=== PATIENT | female | born 1950 | race Caucasian/White ===

== ENCOUNTER 2017-01-24 05:12 | Inpatient (IN) | payer OTHER ==
[2016-12-12 14:00] VITALS: BMI 32.0
--- NOTE | 2016-12-12 14:37 | PAT Medication Instructions ---
Service Date Dec 12, 2016. Current Home Medication List Acetaminophen (Tylenol), 650 MG PO PRN Ascorbic Acid (Vitamin C), 500 MG PO QAM Atorvastatin (Lipitor Unknown Dose), 1 TAB PO QPM Biotin (Biotin), 10,000 MCG PO QAM Fish Oil ([place]-3), 1 CAP PO QAM Glyburide (Micronase), 5 MG PO QAM Laxative (Laxative), 5 MG PO HS Losartan Potassium (Cozaar), 100 MG PO HS Metformin HCL (Glucophage *), 1,000 MG PO QPM Metformin Hcl (Glucophage), 500 MG PO QAM Metoprolol Succ (Toprol Xl) (Toprol-Xl), 50 MG PO HS Multivitamin (Multivitamin), 1 TAB PO QAM Omeprazole (Prilosec), 20 MG PO QAM Pravastatin (Pravachol ), 40 MG PO QPM [Iron], 130 MG PO QAM [Tranjenta], 5 MG PO QAM Medication Instructions For Your Scheduled Surgery - Hold the following medications 2 weeks prior to surgery: Biotin (Biotin), 10,000 MCG PO QAM Fish Oil ([place]-3), 1 CAP PO QAM - Hold the following medications 48 hours prior to surgery: Metformin HCL (Glucophage *) - Hold the following medications evening prior to surgery: Losartan Potassium (Cozaar), 100 MG PO HS - Hold the following medications the morning of surgery: Iron 130 MG PO QAM Multivitamin (Multivitamin), 1 TAB PO QAM Glyburide (Micronase), 5 MG PO QAM Ascorbic Acid (Vitamin C), 500 MG PO QAM Tradjenta 5 MG PO QAM - Take the following medications the morning of surgery with a sip of water: Omeprazole (Prilosec), 20 MG PO QAM Acetaminophen (Tylenol), 650 MG PO PRN - Take the following medications as scheduled the night before surgery: Pravastatin (Pravachol ), 40 MG PO QPM Metoprolol Succ (Toprol Xl) (Toprol-Xl), 50 MG PO HS Laxative (Laxative), 5 MG PO HS Acetaminophen (Tylenol), 650 MG PO PRN If you have any questions please call us at [phone] or [phone] ( [place]) or [phone]
[2016-12-12 15:06] LABS: BASO % 0.4 %; BASO ABS # 0.02 K/uL (0-0.2); EOS % 1.3 %; HEMATOCRIT 35.5 % (37-47); IG% 0.2 %; LYMPH % 25.3 %; MEAN CELL VOLUME 97.5 fL (80-100); MEAN CORPUSCULAR HEMOGLOBIN 32.4 pg (25-34); MEAN CORPUSCULAR HGB CONC 33.2 g/dl (32-36); MEAN PLATELET VOLUME 9.6 fL (7.4-10.4); MONO % 6.9 %; NEUT % 65.9 %; PLATELET COUNT 247 K/uL (130-400); RED BLOOD COUNT 3.64 M/uL (4.2-5.4); WHITE BLOOD COUNT 5.53 K/uL (4.8-10.8)
[2016-12-12 15:15] LABS: PROTHROMBIN TIME (PATIENT) 10.5 SECONDS (9.0-12.0)
--- NOTE | 2016-12-12 15:17 | DIAGNOSTIC IMAGING REPORT ---
CHEST PREADMISSION(PA/LAT) CLINICAL HISTORY: Preoperative chest COMPARISON STUDY: No previous studies for comparison. FINDINGS: The cardiac and mediastinal contours are normal. There is no evidence of focal pulmonary consolidation. There is no evidence of failure. No pleural effusions are visualized.[ There are postsurgical changes present within the lumbar spine. A spinal stimulator is visualized. There are postsurgical changes present within the right shoulder. IMPRESSION: No active disease in the chest. Electronically signed by: Miguelangel Aguiar M.D. 12/12/2016 3:15 PM Dictated Date/Time: 12/12/2016 3:13 PM
[2016-12-12 15:26] LABS: BUN/CREATININE RATIO 19.6 (10-20); CREATININE 1.2 mg/dl (0.60-1.20); POTASSIUM 4.5 mmol/L (3.5-5.1)
[2016-12-12 15:30] LABS: URINE APPEARANCE CLEAR (CLEAR); URINE BILIRUBIN NEG (NEG); URINE COLOR YELLOW; URINE NITRITE NEG (NEG); URINE PH 5.5 (4.5-7.5); URINE SPECIFIC GRAVITY 1.018 (1.000-1.030); UROBILINOGEN NEG (NEG); ZZUR CULT IF INDIC CLEAN CATCH YES
[2016-12-12 15:36] LABS: MANUAL MICROSCOPIC REQUIRED? NO; REVIEW REQ? NO
[2016-12-12 16:08] LABS: COMPLETE YES
[2016-12-13 06:08] LABS: ESTIMATED AVERAGE GLUCOSE 177 mg/dl; HA1C FLAG Normal (Normal)
--- NOTE | 2017-01-23 16:36 | HISTORY & PHYSICAL EXAMINATION ---
DATE OF ADMISSION: 01/24/2017 ADMISSION HISTORY AND PHYSICAL CHIEF COMPLAINT: Chronic left shoulder pain. HISTORY OF PRESENT ILLNESS: This is a 67-year-old female patient of Dr. José'jomar complaining of chronic left shoulder pain and decreased strength, long-standing, now progressively getting worse. The patient has failed conservative treatment and wishes to proceed with a left reversed total shoulder arthroplasty. PAST MEDICAL HISTORY: Hypertension, diabetes mellitus, anemia, osteoarthritis, spine problems, acid reflux, and obesity. SOCIAL HISTORY: 1/4 pack smoker per week. No alcohol. FAMILY HISTORY: Noncontributory. REVIEW OF SYSTEMS: The patient complains of chronic left shoulder pain and decreased strength. Otherwise, denies any shortness of breath, chest pain, nausea, vomiting or any joint complaints. PAST SURGICAL HISTORY: Hysterectomy, bilateral knee replacements, lower back surgery, carpal tunnel surgery and rotator cuff surgery on the right. ALLERGIES: No known drug allergies. MEDICATIONS: Tradjenta 5 mg in the morning, glyburide 5 mg in the morning, vitamin C 500 mg in the morning, multivitamin in the morning, Pearl-3 1200 mg in the morning, iron in the morning and biotin in the morning. In the evenin. Metformin 2/500 mg daily. 2. Pravastatin 40 mg daily at bedtime. 3. Losartan 100 mg daily. 4. Metoprolol 50 mg daily, and laxative 5 mg as needed. PHYSICAL EXAMINATION: GENERAL: Well-developed, well-nourished 67-year-old female in no acute distress. She is alert and oriented x3 and pleasant. HEENT: Normocephalic, atraumatic. Extraocular motions are intact. Pupils are equal and reactive to light. HEART: Regular rate and rhythm, no murmurs appreciated. LUNGS: Clear. ABDOMEN: Soft, nontender, bowel sounds are present. EXTREMITIES: Left shoulder reveals pain with passive range of motion. She has crepitation with passive range of motion. She has 3/5 strength globally. NEUROLOGIC: Neurovascularly, she is intact in her left upper extremity. DIAGNOSES: Left shoulder osteoarthritis with insufficient rotator cuff. She has a history of hypertension, diabetes mellitus, anemia, osteoarthritis, acid reflux, and obesity. PLAN: The patient was advised of her diagnosis. Indications, risks, benefits, pros of course have all been reviewed. The patient wishes to proceed with a left reversed total shoulder arthroplasty. Necessary consent forms, preoperative testing and clearances will be obtained. [facility]
--- NOTE | 2017-01-23 16:44 | HISTORY & PHYSICAL EXAMINATION ---
DATE OF ADMISSION: 01/24/2017 CHIEF COMPLAINT: Chronic left shoulder pain. HISTORY OF PRESENT ILLNESS: This is a 67-year-old female patient of Dr. José'jomar complaining of chronic left shoulder pain, longstanding, now progressively getting worse. The patient has failed conservative treatment and has been diagnosed with end-stage osteoarthritis with insufficient rotator cuff. PAST MEDICAL HISTORY: Hypertension, diabetes mellitus, anemia, osteoarthritis, spine problems, acid reflux, obesity. SOCIAL HISTORY: One-quarter pack per day smoker, nondrinker. SURGICAL HISTORY: Hysterectomy, carpal tunnel, bilateral knee replacements, rotator cuff surgery on the right and back surgery. FAMILY HISTORY: Noncontributory. REVIEW OF SYSTEMS: The patient complains of chronic left shoulder pain and decreased strength, otherwise denies any chest pain, nausea, vomiting or any other joint complaints. MEDICATIONS: Glyburide 5 mg daily, metformin 500 mg daily, vitamin C 500 mg daily, multivitamin daily, omega 3 daily, biotin daily, that was all in the morning, in the evening again Metformin 500 mg b.i.d., pravastatin 40 mg daily, nighttime lovastatin 100 mg daily, metoprolol 50 mg daily and laxatives 5 mg as needed. ALLERGIES: No known drug allergies. PHYSICAL EXAMINATION: GENERAL: Well-developed, well-nourished 86-year-old female patient of Dr. José'jomar complaining of chronic left shoulder pain and decreased strength with a history of hypertension. EXTREMITIES: Left shoulder reveals 3/5 strength. She had pain and crepitation with passive range of motion. Otherwise, denies any shortness of breath. DICTATION ENDED HERE!
[~2017-01-24] VITALS: Ht 160 cm; Wt 82.6 kg
[2017-01-24] VITALS (8 sets, daily range): BP systolic 103–155; BP diastolic 59–82; PULSE 63–77; TEMP 36.3–36.8; O2SAT 96–100; Ht 160 cm; Wt 82.6 kg
[~2017-01-24 05:12] MED LIST: ACET-1311 PO; ASCO1CAP3 PO; BIOT1CAP3 PO; GLC/500 PO; GLC500 PO; GLYB5TAB8 PO; IRON PO; LOSA1TAB38 PO; LXT PO; METO50TA7 PO; MULT-506 PO; OMEG10007 PO; PRAV20TA PO; PRLSR20 PO; Tradjenta PO
[2017-01-24] MEDS ORDERED: LACTATED RINGER'S 1000ML IV SCH (06:00)
[2017-01-24] MEDS ORDERED: GABAPENTIN 300 MG CAP PO SCH (06:00)
[2017-01-24] MEDS ORDERED: FAMOTIDINE 20 MG TAB PO SCH (06:00)
[2017-01-24] MEDS ORDERED: ACETAMINOPHEN 500 MG TAB PO SCH (06:00)
[2017-01-24] MEDS ORDERED: METOCLOPRAMIDE HCL 10 MG TAB PO SCH (06:00)
[2017-01-24] MEDS ORDERED: LACTATED RINGER'S 1000ML 1,000 ML IV SCH (06:00)
[2017-01-24] MEDS ORDERED: CEFAZOLIN 2000 MG/60 ML D5W 60 ML IV SCH (06:00)
[2017-01-24] MEDS ORDERED: CeleBREX 200 MG CAP PO SCH (06:00)
[2017-01-24] MEDS ORDERED: ROPIVACAINE 0.5% 5 MG/ML 30 ML VIAL ONE (06:17)
[2017-01-24] MEDS ORDERED: FENTANYL CITRATE INJ 50 MCG/1 ML 2 ML VIAL ONE (06:52)
[2017-01-24] MEDS ORDERED: MIDAZOLAM HCL 1 MG/ML 2ML VIAL ONE (06:52)
[2017-01-24] MEDS ORDERED: BACITRACIN 50000 UNIT VIAL ONE (06:59)
--- NOTE | 2017-01-24 07:13 | History & Physical Bridge Note ---
H&P Re-Evaluation Bridge Note: I have examined the patient, reviewed the History & Physical and in the interval since the performance of the History & Physical I have noted the following changes of clinical significance: No changes noted
[2017-01-24] MEDS ORDERED: ONDANSETRON INJ 2 MG/ML 2 ML VIAL IV PRN (08:15)
[2017-01-24] MEDS ORDERED: HYDROmorphone INJ 2 MG/ML SYR/VIAL IV PRN (08:15)
[2017-01-24] MEDS ORDERED: PHENYLEPHRINE 100MCG/ML 5ML SYR IV PRN (08:15)
[2017-01-24] MEDS ORDERED: ATROPINE SULFATE 0.1 MG/ML 5ML SYR IV PRN (08:15)
[2017-01-24] MEDS ORDERED: EpHEDrine SULFATE INJ 50 MG/ML AMP IV PRN (08:15)
--- NOTE | 2017-01-24 09:59 | [facility] Operative Report ---
Operative Report Operative Date January 24, 2017. Pre-Operative Diagnosis Left shoulder osteoarthritis with insufficient rotator cuff Post-Operative Diagnosis same Procedure(s) Performed left reversed total shoulder replacement Surgeon Dr. José Program Coordinator Surgeon(s) CAITIE Marin Estimated Blood Loss 50cc Findings severe djd posterior superior glenoid erosion,chronic tear rotator cuff supraspinatus and infraspinatus Specimens A) Left shoulder- bone & tissue Drains 2 hemovac Anesthesia general regional Complication(s) None Disposition Recovery Room / PACU Indications severe rotator cuff arthropathy I attest to the content of the Intraoperative Record and any orders documented therein. Any exceptions are noted below.
[2017-01-24] MEDS ORDERED: PROPOFOL IV EMULSION 10 MG/ML 20 ML VIAL IV ONE (10:03)
[2017-01-24] MEDS ORDERED: ROCURONIUM BROMIDE 10 MG/ML 5 ML VIAL ONE (10:03)
[2017-01-24] MEDS ORDERED: DEXAMETHASONE SOD INJ 4 MG/ML VIAL ONE (10:03)
[2017-01-24] MEDS ORDERED: ONDANSETRON INJ 2 MG/ML 2 ML VIAL ONE (10:03)
[2017-01-24] MEDS ORDERED: LIDOCAINE 2% 20 MG/ML 5ML SYR ONE (10:03)
[2017-01-24] MEDS ORDERED: LARYING-O-JET KIT (LTA) EXT ONE ×2 (10:03)
[2017-01-24] MEDS ORDERED: MAGNESIUM HYDROXIDE SUSP 30 ML UDC PO PRN (10:15)
[2017-01-24] MEDS ORDERED: ZOLPIDEM TARTRATE 5 MG TAB PO PRN (10:15)
[2017-01-24] MEDS ORDERED: NALOXONE HCL 0.4 MG/1 ML VIAL/CARP IV PRN (10:15)
[2017-01-24] MEDS ORDERED: BISACODYL 10 MG SUPP PR PRN (10:15)
[2017-01-24] MEDS ORDERED: SOD PHOSPHATE/SOD BIPHOSPHATE ENEMA 132 ML BTL PR PRN (10:15)
[2017-01-24] MEDS ORDERED: MoRPHine SULFATE 2 MG/ML CARP IV PRN (10:15)
[2017-01-24] MEDS ORDERED: HYDROmorphone INJ 1 MG/ML SYR ONE (10:28)
--- NOTE | 2017-01-24 11:06 | DIAGNOSTIC IMAGING REPORT ---
LEFT SHOULDER MIN 2 VIEWS ROUTINE CLINICAL HISTORY: Post shoulder surgery shoulder arthroplasty COMPARISON: None. DISCUSSION: Evidence for a total left shoulder arthroplasty. Alignment is anatomic. Surgical drains are in position. Expected soft tissue postoperative change. IMPRESSION: Anatomic alignment status post total left shoulder arthroplasty. Electronically signed by: Maxi Magana M.D. 01/24/2017 11:04 AM Dictated Date/Time: 01/24/2017 11:04 AM
--- NOTE | 2017-01-24 11:26 | Anesthesiology Progress Note ---
Anesthesia Post Op Note Date & Time January 24, 2017 at 11:26 Vital Signs Pain Intensity: 1 Vital Signs Past 12 Hours Date Time Temp Pulse Resp B/P Pulse Ox O2 Delivery O2 Flow Rate FiO2 01/24/17 10:57 36.4 75 16 154/83 98 Nasal Cannula 3 01/24/17 10:55 155/84 01/24/17 10:53 70 15 95 01/24/17 10:53 70 15 01/24/17 10:50 157/82 01/24/17 10:48 73 14 01/24/17 10:48 72 14 100 01/24/17 10:45 150/80 01/24/17 10:43 69 14 01/24/17 10:43 68 14 99 01/24/17 10:40 150/78 01/24/17 10:38 70 15 01/24/17 10:38 70 15 99 01/24/17 10:35 151/76 01/24/17 10:33 70 14 100 01/24/17 10:33 70 14 01/24/17 10:32 69 16 01/24/17 10:32 69 16 100 01/24/17 10:30 148/73 01/24/17 10:27 73 16 100 01/24/17 10:27 73 16 01/24/17 10:25 157/78 01/24/17 10:22 71 9 01/24/17 10:22 71 9 100 01/24/17 10:20 148/80 01/24/17 10:17 71 12 100 01/24/17 10:17 71 12 01/24/17 10:15 146/75 01/24/17 10:12 66 16 152/83 100 01/24/17 10:12 67 16 01/24/17 10:12 36 65 16 152/83 100 Mask 10 01/24/17 06:11 36.5 63 18 129/75 96 Room Air Notes Mental Status: alert / awake / arousable, participated in evaluation Pt Amnestic to Procedure: Yes Nausea / Vomiting: adequately controlled Pain: adequately controlled Airway Patency, RR, SpO2: stable & adequate BP & HR: stable & adequate Hydration State: stable & adequate Anesthetic Complications: no major complications apparent
[2017-01-24] MEDS ORDERED: GLUCOSE 40% GEL 15 GM TUBE PO PRN (12:00)
[2017-01-24] MEDS ORDERED: INSULIN ASPART 100 UNITS/ML 3 ML PEN SC SCH (12:00)
[2017-01-24] MEDS ORDERED: GLUCOSE 10 TABS/TUBE PO PRN (12:00)
[2017-01-24] MEDS ORDERED: GLUCAGON FOR INJ 1 MG VIAL SQ PRN (12:00)
[2017-01-24] MEDS ORDERED: DEXTROSE 50% 50 ML SYR IV PRN (12:00)
[2017-01-24] MEDS ORDERED: MoRPHine SULFATE 4 MG/ML 1 ML CARP\\VIAL IV PRN (12:15)
--- NOTE | 2017-01-24 12:30 | OPERATIVE REPORT ---
DATE OF OPERATION: 01/24/2017 INDICATION FOR PROCEDURE: The patient is a 67-year-old female with progressive chronic pain in left shoulder. She has a chronic rotator cuff tear. She has severe rotator cuff arthropathy, [id number] in the glenohumeral joint with proximal migration of the humerus. PREOPERATIVE DIAGNOSES: Severe endstage rotator cuff arthropathy, chronic rotator cuff tear, left shoulder. POSTOPERATIVE DIAGNOSES: Same with chronically ruptured biceps tendon, scarred in biceps groove, tears of supraspinatus and infraspinatus with intact teres minor, severe degenerative joint disease glenohumeral joint with posterior superior glenoid bone erosion. PROCEDURE: Left reverse total shoulder replacement. SURGEON: Dr. José. FRAME CHANGER: Maxi Gibson PA-C. ANESTHESIA: Regional block, general. OPERATIVE PROCEDURE: The patient was taken to the operating room, anesthetized with regional block and general anesthetic. She was positioned on the operating room table in a 40-degree beach chair position. A towel was placed in the medial border of the left scapula. She was translated to left side of the bed so that her shoulder could be manipulated off the bed as necessary. Her head was placed on a foam headrest. She had protective eyewear placed. She had a Boothe catheter placed, TEDs and SCDs placed. Left shoulder exam demonstrated she had 120 degrees of forward elevation, 7 degrees of abduction, and 15 degrees of external rotation, [id number] crepitation. The left shoulder was sterilely prepped and draped with ChloraPrep. Anterior deltopectoral approach was performed. Skin was incised sharply in a longitudinal fashion. Subcutaneous fat which was moderately deep was divided down to the fascia. Subcutaneous bleeders were cauterized. She had multiple veins that were cauterized. Dissection was taken down to the fascia. She did not have a well-developed cephalic vein. She has had some small veins in that area, had some crossing veins. These were cauterized. The deltoid was retracted laterally. The pectoralis was retracted medially. The falciform ligament and upper centimeter of the pec was incised for inferior exposure. The biceps tendon was then tenodesed to the pectoralis tendon using slzeru-[id number] #2 FiberWire sutures. Proximal biceps was divided proximal to the tenodesis site and then we dissected this up and there was actually previously ruptured and scarred in bicipital groove. The circumflex vessels were identified, tied off with silk ties, and divided laterally. There was a large bursal sac with scarred bursa tissue that was surrounding the rotator cuff and overlying the subscapularis. This was dissected off the subscapularis and then tacked and this revealed a large rotator cuff tear, the supraspinatus and infraspinatus which were completely torn, there were large greater tuberosity osteophytes, and there was an intact teres minor. The other rotator cuff tendons were retracted medially significantly. This bursa was resected completely. Then, the inferior muscle fibers of the subscapularis were dissected down to the inferior capsule and I left a cup of muscle fibers to protect the axillary nerve inferiorly. I dissected off the inferior capsule and a Kitner elevator was used to reflect these fibers off the inferior capsule and then a blunt Hohmann retractor was placed to protect the axillary nerve which was identified with a tug test. The subscapularis was then taken down starting in the bicipital groove and subperiosteal dissecting the capsule and intact subscap tendon off the lesser tuberosity and off the neck of the humerus and the inferior neck of the humerus. A #1 Vicryl traction suture was placed into the subscapularis tendon to control the tendon. The glenohumeral joint was inspected. She had significant glenoid erosion, more posterior superior, and she was completely down to bone on the humeral head. She did not have any significant humeral head osteophytes inferiorly, but more laterally and superiorly she had osteophytes. The capsule was released under direct visualization down to the anterior glenoid, released off the anterior glenoid, and the rotator interval tissue was released down to the glenoid, so we had a 360-degree release of the subscapularis. Bankart retractor was placed anteriorly. The labral remnants were resected circumferentially. An anteroinferior and posteroinferior capsular release was performed with electrocautery and a Crisostomo elevator on bone with the axillary nerve protected with the inferior retractor. The remnants of the rotator cuff were resected off the supraspinatus and infraspinatus. The humerus was then exposed with extension and external rotation. The Tornier Aequalis reversed II glenoid was used and the Ascend Flex shoulder system was used for the humeral stem. Both bone ingrowth devices. The guide for the neck cut was placed, the neck cut was made in 20 degrees of retroversion. Then, the humerus was retracted posterior to the glenoid using blunt Hohmann and sharp Hohmann retractors. A Bankart retractor was placed anteriorly with the glenoid fully exposed. A central drill hole was made into the glenoid. We positioned the glenoid reamer and drill hole so that we could put 10-degree inferior tilt and correct some of the posterior wear into some slight more anteversion into a better anatomic position. The 25 mm baseplate was chosen. Then, after the reamer was completed, the central hole was widened and the 25 mm baseplate was impacted into position with a tight pressfit. We used anterior and posterior 18 mm compression screws and 23 and 20 mm superior and inferior locking screws for further fixation. There was excellent fixation of the glenoid baseplate. A fan reamer was used. Then, the 36 glenosphere was impacted into position after the baseplate was irrigated copiously and dried. The glenosphere after impacting it solidly and checking it, then we went ahead and tightened the screw until it was fully tightened and the baseplate was secure. Then, attention was taken to the humeral preparation. Humerus was exposed with extension and external rotation. A central awl was used. Broaches were used up to a size 4 which was appropriate fit. Box osteotome was used to open the canal. Then, we broached up to a size 4. Then did a trial reduction with a high offset +0 tray with a 6 mm implant trial. This gave good stability, no shuck, good range of motion. The trial was removed. Three drill holes were made lateral to the lesser tuberosity and into the hard bone in the bicipital groove area. #5 FiberWire sutures were placed transosseously around the lesser tuberosity. The canal was irrigated copiously with antibiotic solution and bacitracin. The final implant was assembled which was the long stem size 4B stem assembled to the high offset reversed tray, assembled to the +6 mm polyethylene insert. After that component was solidly assembled, it was impacted into the humeral shaft with a tight pressfit. This was reduced to the glenoid, stability was assessed, and there was excellent stability, no shuck. After copiously irrigating with antibiotic solution and cameron, the subscapularis was then repaired with the #5 FiberWire sutures using Kan-Zuhair suture technique and then reassessed range of motion which was 35 degrees of external rotation and 90 degrees of abduction and 130 degrees of forward elevation without any tension on the repair and there was no shuck and good stability. The wound was irrigated copiously. The pectoralis tendon was repaired with interrupted gjides-cz-uluor #2 FiberWire sutures. Two drains were placed. The deltopectoral interval was closed over the drains with hownom-pa-zbvve #1 Vicryl. Subcutaneous tissues were closed with interrupted 2-0 Vicryl, skin closed with ace, sterile dressings applied. The patient had about 50 mL of blood loss, tolerated the procedure well. Maxi Gibson PA-C, was my faculty research assistant, functioned as faculty research assistant for the entire procedure. He assisted in patient positioning, prepping, draping, arm positioning, instrument management, suture management as needed during the procedure, performed soft tissue retraction as necessary, and he did perform the final subcutaneous skin closure and will participate in postop care of the patient. I attest to the content of the Intraoperative Record and any orders documented therein. Any exceptio ns are noted below.
[2017-01-24] MEDS: POTASSIUM CHLORIDE INJ 10 MEQ in SODIUM CHLORIDE 0.9% 1000ML 1,000 ML IV SCH ×2 (13:07→21:45)
[2017-01-24] MEDS: ACETAMINOPHEN 500 MG TAB PO SCH ×2 (13:08→21:35)
--- NOTE | 2017-01-24 13:29 | Progress Note ---
Subjective Date of Service: January 24, 2017. Subjective Pt evaluation today including: conversation w/ patient, physical exam, chart review, lab review, review of inpatient medication list asked to see for "medical management" on review main medical problems appear to be DM, HTN, hyperlipid, GERD. seen post op - somewhat groggy but doing OK. notes no pain yet. did have some nausea earlier but going away. no acute complaints A1c 7.8, notes that in addition to listed meds she takes toujeo but doesn't remember how much notes that BP usually runs good. although does not give specific numbers Review of Systems ros otherwise negative except for as above Objective Vital Signs Date Time Temp Pulse Resp B/P Pulse Ox O2 Delivery O2 Flow Rate FiO2 01/24/17 12:46 77 20 143/76 99 Nasal Cannula 2.0 01/24/17 12:08 36.3 72 16 155/77 97 Nasal Cannula 2.0 01/24/17 11:40 36.6 77 18 152/75 97 Nasal Cannula 2.0 01/24/17 11:40 Nasal Cannula 2.0 01/24/17 11:21 71 11 96 01/24/17 11:21 71 11 01/24/17 11:20 157/78 01/24/17 11:16 70 13 01/24/17 11:16 69 13 97 01/24/17 11:15 145/79 01/24/17 11:11 69 12 96 01/24/17 11:11 68 12 01/24/17 11:10 159/77 01/24/17 11:07 153/81 01/24/17 11:06 73 16 96 01/24/17 11:06 73 16 01/24/17 11:05 165/84 01/24/17 11:01 69 12 96 01/24/17 11:01 70 12 01/24/17 11:00 154/83 01/24/17 10:57 36.4 75 16 154/83 98 Nasal Cannula 3 01/24/17 10:56 70 10 01/24/17 10:56 70 10 95 01/24/17 10:55 155/84 01/24/17 10:53 70 15 95 01/24/17 10:53 70 15 01/24/17 10:50 157/82 01/24/17 10:48 73 14 01/24/17 10:48 72 14 100 01/24/17 10:45 150/80 01/24/17 10:43 69 14 01/24/17 10:43 68 14 99 01/24/17 10:40 150/78 01/24/17 10:38 70 15 01/24/17 10:38 70 15 99 01/24/17 10:35 151/76 01/24/17 10:33 70 14 100 01/24/17 10:33 70 14 01/24/17 10:32 69 16 01/24/17 10:32 69 16 100 01/24/17 10:30 148/73 01/24/17 10:27 73 16 100 01/24/17 10:27 73 16 01/24/17 10:25 157/78 01/24/17 10:22 71 9 01/24/17 10:22 71 9 100 01/24/17 10:20 148/80 01/24/17 10:17 71 12 100 01/24/17 10:17 71 12 01/24/17 10:15 146/75 01/24/17 10:12 66 16 152/83 100 01/24/17 10:12 67 16 01/24/17 10:12 36 65 16 152/83 100 Mask 10 01/24/17 06:11 36.5 63 18 129/75 96 Room Air Physical Exam General Appearance: no apparent distress (fatigued but no distress) Eyes: EOMI ENT: hearing grossly normal Neck: trachea midline Respiratory/Chest: no respiratory distress, no accessory muscle use Extremities: + pertinent finding (L shoulder in a sling, dressed. ) Neurologic/Psychiatric: program supervisor II-XII nml as tested, alert, normal mood/affect Skin: normal color, warm/dry Laboratory Results Last 24 Hours Test 01/24/17 06:02 01/24/17 10:14 01/24/17 12:06 Bedside Glucose 184 mg/dl 192 mg/dl 222 mg/dl Assessment and Plan s/p shoulder surgery - per ortho DVT proph - per ortho given her immediate post op status DM -A1c 7.8, sugars appearing currently a little high as well -with creatinine 1.2 and low risk for volume loss- OK to resume metformin and glyburide. since she's not sure how much insulin she takes (and diet likely to be more carb controlled here than as outpt) will start w supplemental log insulin and titrate to basal bolus if necessary HTN -continue losartan (again low risk for volume loss, so OK to continue) -continue metoprolol -follow vitals Hyperlipid -continue pravachol GERD -continue PPI
[2017-01-24] MEDS: CEFAZOLIN IV 2,000 MG in DEXTROSE 5% 50ML 50 ML IV SCH ×2 (16:02→23:31)
[2017-01-24] MEDS: METFORMIN HCL 500 MG TAB PO SCH (18:20)
[2017-01-24] MEDS: ONDANSETRON INJ 2 MG/ML 2 ML VIAL IV PRN (18:21)
[2017-01-24] MEDS: INSULIN ASPART 100 UNITS/ML 3 ML PEN SC SCH ×2 (18:27→21:37)
[2017-01-24] MEDS: PRAVASTATIN SOD 20 MG TAB PO SCH (21:35)
[2017-01-24] MEDS: DOCUSATE SODIUM 100 MG CAP PO SCH (21:35)
[2017-01-24] MEDS: LOSARTAN POTASSIUM 50 MG TAB PO SCH (21:36)
[2017-01-24] MEDS: METOPROLOL SUCC 50MG EXT REL TAB PO SCH (21:36)
[2017-01-24] MEDS: OXYCODONE HCL 10 MG TABCR (OXYCONTIN) PO SCH (21:38)
[2017-01-25] VITALS (8 sets, daily range): BP systolic 110–134; BP diastolic 68–82; PULSE 59–69; TEMP 36.6–36.9; O2SAT 97–100
[2017-01-25] MEDS: ACETAMINOPHEN 500 MG TAB PO SCH ×4 (05:40→22:58)
[2017-01-25 06:16] LABS: HEMATOCRIT 30.8 % (37-47); MEAN CORPUSCULAR HEMOGLOBIN 31.2 pg (25-34); MEAN CORPUSCULAR HGB CONC 31.5 g/dl (32-36); MEAN PLATELET VOLUME 9.2 fL (7.4-10.4); PLATELET COUNT 217 K/uL (130-400); RED BLOOD COUNT 3.11 M/uL (4.2-5.4); WHITE BLOOD COUNT 7.32 K/uL (4.8-10.8)
[2017-01-25 06:49] LABS: BUN/CREATININE RATIO 30.4 (10-20); CALCIUM 8.3 mg/dl (8.5-10.1); CREATININE 0.79 mg/dl (0.60-1.20); POTASSIUM 4.7 mmol/L (3.5-5.1)
[2017-01-25] MEDS: ONDANSETRON INJ 2 MG/ML 2 ML VIAL IV PRN ×2 (07:34→13:28)
[2017-01-25] MEDS: INSULIN ASPART 100 UNITS/ML 3 ML PEN SC SCH ×4 (08:00→20:46)
--- NOTE | 2017-01-25 08:06 | Orthopedic Progress Note ---
Orthopedic Progress Note Date of Service January 25, 2017. Subjective Post OP Day: 1 Reports: feeling well, pain controlled w PO medications, Denies: SOB, calf pain , chest pain, complaints, light headedness, nausea / vomiting Objective N/V intact, capillary refill less than 2 sec., dressing C/D/I, A&O x3 Sling in tact, fingers mobile. Date Time Temp Pulse Resp B/P Pulse Ox O2 Delivery O2 Flow Rate FiO2 01/25/17 06:56 36.6 59 20 123/80 100 Room Air 01/25/17 03:10 36.7 65 16 128/68 97 Nasal Cannula 2.0 01/24/17 23:40 36.6 72 16 103/59 100 Nasal Cannula 2.0 01/24/17 21:35 121/71 01/24/17 19:30 Nasal Cannula 2.0 01/24/17 16:00 Nasal Cannula 2.0 01/24/17 14:49 36.8 67 18 130/82 99 Nasal Cannula 2.0 01/24/17 13:40 74 18 129/75 96 Nasal Cannula 2.0 01/24/17 12:46 77 20 143/76 99 Nasal Cannula 2.0 01/24/17 12:08 36.3 72 16 155/77 97 Nasal Cannula 2.0 01/24/17 11:40 36.6 77 18 152/75 97 Nasal Cannula 2.0 01/24/17 11:40 Nasal Cannula 2.0 01/24/17 11:21 71 11 96 01/24/17 11:21 71 11 01/24/17 11:20 157/78 01/24/17 11:16 70 13 01/24/17 11:16 69 13 97 01/24/17 11:15 145/79 01/24/17 11:11 69 12 96 01/24/17 11:11 68 12 01/24/17 11:10 159/77 01/24/17 11:07 153/81 01/24/17 11:06 73 16 96 01/24/17 11:06 73 16 01/24/17 11:05 165/84 01/24/17 11:01 69 12 96 01/24/17 11:01 70 12 01/24/17 11:00 154/83 01/24/17 10:57 36.4 75 16 154/83 98 Nasal Cannula 3 01/24/17 10:56 70 10 01/24/17 10:56 70 10 95 01/24/17 10:55 155/84 01/24/17 10:53 70 15 95 01/24/17 10:53 70 15 01/24/17 10:50 157/82 01/24/17 10:48 73 14 01/24/17 10:48 72 14 100 01/24/17 10:45 150/80 01/24/17 10:43 69 14 01/24/17 10:43 68 14 99 01/24/17 10:40 150/78 01/24/17 10:38 70 15 01/24/17 10:38 70 15 99 01/24/17 10:35 151/76 01/24/17 10:33 70 14 100 01/24/17 10:33 70 14 01/24/17 10:32 69 16 01/24/17 10:32 69 16 100 01/24/17 10:30 148/73 01/24/17 10:27 73 16 100 01/24/17 10:27 73 16 01/24/17 10:25 157/78 01/24/17 10:22 71 9 01/24/17 10:22 71 9 100 01/24/17 10:20 148/80 01/24/17 10:17 71 12 100 01/24/17 10:17 71 12 01/24/17 10:15 146/75 01/24/17 10:12 66 16 152/83 100 01/24/17 10:12 67 16 01/24/17 10:12 36 65 16 152/83 100 Mask 10 Laboratory Results 24 Hours: Test 01/25/17 05:30 Hematocrit 30.8 % Hemoglobin 9.7 g/dL Assessment & Plan Assessment: POD #1, Left Reversed TSA, biceps tenodesis Plan: Limited PT as ordered D/C planning- Home Appreciate medicine input. Inhouse Planning Pain Management: Oxycontin, Morphine, PO Tylenol, Oxy IR DVT Prophylaxis: TEDs, SCDs Discharge Planning Discharge Planning: home Pain Management: Oxycontin, PO Tylenol, Oxy IR DVT Prophylaxis: TEDs
--- NOTE | 2017-01-25 08:08 | Discharge Instructions ---
Discharge Instructions Date of Service January 25, 2017. Admission Reason for Admission: Left Shoulder Rotator Cuff Arthropathy Discharge Discharge Diagnosis / Problem: Left Reversed TSA Discharge Goals Goal(s): Improve function Activity Recommendations Activity Limitations: as noted below . Instructions / Follow-Up Instructions / Follow-Up ACTIVITY RECOMMENDATIONS: SELF CARE INSTRUCTIONS AFTER TOTAL SHOULDER ARTHROPLASTY REVERSE A. You may do daily exercises as taught in physical therapy while in hospital. No lifting with the operative arm. B. You are to wear your sling/immobilizer at all times EXCEPT when performing your daily exercises and for hygiene purposes. C. You may perform dry, daily dressing changes. Please keep your incision covered. You may shower 48 hours after surgery. Do not apply soap or any ointment/ lotions directly over incision. Do not soak incision in bath tub/swimming pool. D. You may use ice as needed to operative shoulder. SPECIAL CARE INSTRUCTIONS: VERY IMPORTANT TO READ AND REVIEW A. There are a few signs you need to watch for after you are home. Call [facility] at [phone] if you experience any of the followin. Increased severe shoulder pain. Some pain is expected especially when you exercise. 2. Increased swelling in you shoulder or arm; pain or swelling in either upper extremity. 3. Any fluid drainage from the incision. 4. Shortness of breath or chest pain. B. Please call [facility] at [phone] if you have any questions or concerns about your operation or recovery. C. Call your physician if: 1. Temperature is greater than 101 degrees (F). 2. Pain is not relieved by prescribed pain medications. 3. Increase drainage or redness from incision. 4. Unanswered questions or concerns. FOLLOW UP VISIT: Please call [facility] at [phone] to schedule a follow up appointment with Dr. José or his PA in 12-14 days from your surgery date. Current Hospital Diet Patient's current hospital diet: Diabetes Type 2 Diet Discharge Diet Recommended Diet: Diabetes Type 2 Diet Procedures Procedures Performed: Left Reverse Total Shoulder Arthroplasty Pending Studies Studies pending at discharge: no Laboratory Results Hemoglobin A1c Test 12/12/16 14:40 Range/Units Estimated Average Glucose 177 mg/dl Hemoglobin A1c 7.8 H 4.5-5.6 % Medical Emergencies . Who to Call and When: Medical Emergencies: If at any time you feel your situation is an emergency, please call 911 immediately. . Non-Emergent Contact Non-Emergency issues call your: Primary Care Provider . "Provider Documentation" section prepared by Maxi Gibson. . VTE Core Measure Inpt VTE Proph given/why not?: Alex BLOOD Drug Monitoring Program Search Results: patient reviewed within database, no issues identified
[2017-01-25] MEDS: METFORMIN HCL 500 MG TAB PO SCH ×2 (08:16→17:53)
[2017-01-25] MEDS: DOCUSATE SODIUM 100 MG CAP PO SCH ×2 (08:17→20:39)
[2017-01-25] MEDS: MULTIVITAMIN TAB PO SCH (08:17)
[2017-01-25] MEDS: FERROUS SULFATE 325 MG TAB PO SCH (08:17)
[2017-01-25] MEDS: PANTOprazole SOD 40 MG TAB PO SCH (08:17)
[2017-01-25] MEDS: ASCORBIC ACID 500 MG TAB PO SCH (08:17)
[2017-01-25] MEDS: POTASSIUM CHLORIDE INJ 10 MEQ in SODIUM CHLORIDE 0.9% 1000ML 1,000 ML IV SCH (08:21)
[2017-01-25] MEDS: OXYCODONE HCL 10 MG TABCR (OXYCONTIN) PO SCH (08:21)
[2017-01-25] MEDS ORDERED: NON-FORMULARY MEDICATION (Biotin 10,000 MCG) PO SCH (09:00)
[2017-01-25] MEDS ORDERED: TRADJENTA 5 MG PO SCH (09:00)
[2017-01-25] MEDS: OXYCODONE HCL IR 5 MG TAB (IMMEDIATE RELEASE) PO PRN (09:59)
--- NOTE | 2017-01-25 10:21 | Progress Note ---
Subjective Date of Service: January 25, 2017. Subjective Pt evaluation today including: conversation w/ patient, physical exam, lab review, review of inpatient medication list Pain: left shoulder pain, controlled PO Intake: adequate Voiding: no voiding problems patient feeling well, no chest pain, no dyspnea, just finished ambulating in the halls left shoulder pain controlled, currently going through some exercises with therapy eating well, no nausea, no BM today Review of Systems Musculoskeletal: + joint pain (left shoulder after surgery) All Other Systems: Reviewed and Negative Medications Current Inpatient Medications Medications (Trade) Dose Ordered Sig/[place] Route Start Time Stop Time Status Last Admin Dose Admin Losartan Potassium (coZAAR TAB) 100 mg HS PO 01/24/17 21:00 02/23/17 20:59 01/24/17 21:36 100 MG Metoprolol Succinate (Toprol Xl Tab) 50 mg HS PO 01/24/17 21:00 02/23/17 20:59 01/24/17 21:36 50 MG Pravastatin Sodium (Pravachol Tab) 40 mg QPM PO 01/24/17 21:00 02/23/17 20:59 01/24/17 21:35 40 MG Ascorbic Acid (Vitamin C Tab) 500 mg QAM PO 01/25/17 09:00 02/24/17 08:59 01/25/17 08:17 500 MG Ferrous Sulfate (Feosol Tab) 650 mg DAILY PO 01/25/17 09:00 02/24/17 08:59 01/25/17 08:17 650 MG Diphenhydramine HCl (Benadryl Cap) 25 mg Q8 PRN PO 01/24/17 10:15 02/23/17 10:14 Zolpidem Tartrate (Ambien Tab) 5 mg HSZ PRN PO 01/24/17 10:15 02/23/17 10:14 Ondansetron HCl (Zofran Inj) 4 mg Q6H PRN IV 01/24/17 10:15 02/23/17 10:14 01/25/17 07:34 4 MG Pantoprazole Sodium 40 mg 40 mg QAM PO 01/25/17 09:00 02/24/17 08:59 01/25/17 08:17 40 MG Potassium Chloride/Sodium Chloride (KCl Inj/Nss 1000ml) 1,005 ml @ 100 mls/hr Q10H3M IV 01/24/17 12:30 01/25/17 11:00 01/25/17 08:21 100 MLS/HR Oxycodone HCl (Roxicodone Immediate Rel Tab) `1-2 TABS FOR PAIN `1 TAB... Q4H PRN PO 01/24/17 10:15 02/07/17 10:14 01/25/17 09:59 5 MG Oxycodone HCl (Oxycontin Tab) 10 mg Q12 PO 01/24/17 21:00 02/07/17 20:59 01/25/17 08:21 10 MG Acetaminophen (Tylenol Tab) 1,000 mg Q8 PO 01/24/17 14:00 02/23/17 13:59 01/25/17 05:40 1,000 MG Morphine Sulfate (MoRPHine SULFATE INJ) 2 mg Q2H PRN IV 01/24/17 10:15 02/07/17 10:14 Naloxone HCl (Narcan Inj) 0.1 mg Q2M PRN IV 01/24/17 10:15 02/23/17 10:14 Magnesium Hydroxide (Milk Of Magnesia Susp) 30 ml Q6H PRN PO 01/24/17 10:15 02/23/17 10:14 Bisacodyl (Dulcolax Supp) 10 mg DAILY PRN NE 01/24/17 10:15 02/23/17 10:14 Sodium Biphosphate/ Sodium Phosphate (Fleet Enema) 132 ml DAILY PRN NE 01/24/17 10:15 02/23/17 10:14 Docusate Sodium (coLACE CAP) 100 mg BID PO 01/24/17 21:00 02/23/17 20:59 01/25/17 08:17 100 MG Multivitamins (Multivitamin Tab) 1 tab DAILY PO 01/25/17 09:00 02/24/17 08:59 01/25/17 08:17 1 TAB Glucose (Glucose 40% Gel) 15-30 GRAMS 15 GRAMS... UD PRN PO 01/24/17 12:00 02/23/17 11:59 Glucose (Glucose Chew Tab) 4-8 Tablets 4 Tabl... UD PRN PO 01/24/17 12:00 02/23/17 11:59 Dextrose (Dextrose 50% 50ML Syringe) 25-50ML OF 50% DW IV FOR... UD PRN IV 01/24/17 12:00 02/23/17 11:59 Glucagon (Glucagon Inj) 1 mg UD PRN SQ 01/24/17 12:00 02/23/17 11:59 Miscellaneous Information (Order Awaiting Action) 1 ea QS N/A 01/24/17 16:00 02/23/17 15:59 Morphine Sulfate (MoRPHine SULFATE INJ) 4 mg Q2H PRN IV 01/24/17 12:15 02/07/17 12:14 Glyburide (MICRONase TAB) 5 mg QAM PO 01/25/17 09:00 02/24/17 08:59 01/25/17 08:17 5 MG Metformin HCl (Glucophage Tab) 1,000 mg DAILY@1745 PO 01/24/17 17:45 02/23/17 17:44 01/24/17 18:20 1,000 MG Metformin HCl (Glucophage Tab) 500 mg QAM PO 01/25/17 09:00 02/24/17 08:59 01/25/17 08:16 500 MG Insulin Aspart (novoLOG ASPART) SLIDING SCALE G... ACHS SC 01/24/17 17:15 02/23/17 17:14 01/24/17 21:37 5 UNITS Objective Vital Signs Date Time Temp Pulse Resp B/P Pulse Ox O2 Delivery O2 Flow Rate FiO2 01/25/17 08:36 97 Room Air 01/25/17 07:45 36.6 62 12 134/78 97 Room Air 01/25/17 06:56 36.6 59 20 123/80 100 Room Air 01/25/17 03:10 36.7 65 16 128/68 97 Nasal Cannula 2.0 01/24/17 23:40 36.6 72 16 103/59 100 Nasal Cannula 2.0 01/24/17 21:35 121/71 01/24/17 19:30 Nasal Cannula 2.0 01/24/17 16:00 Nasal Cannula 2.0 01/24/17 14:49 36.8 67 18 130/82 99 Nasal Cannula 2.0 01/24/17 13:40 74 18 129/75 96 Nasal Cannula 2.0 01/24/17 12:46 77 20 143/76 99 Nasal Cannula 2.0 01/24/17 12:08 36.3 72 16 155/77 97 Nasal Cannula 2.0 01/24/17 11:40 36.6 77 18 152/75 97 Nasal Cannula 2.0 01/24/17 11:40 Nasal Cannula 2.0 01/24/17 11:21 71 11 96 01/24/17 11:21 71 11 01/24/17 11:20 157/78 01/24/17 11:16 70 13 01/24/17 11:16 69 13 97 01/24/17 11:15 145/79 01/24/17 11:11 69 12 96 01/24/17 11:11 68 12 01/24/17 11:10 159/77 01/24/17 11:07 153/81 01/24/17 11:06 73 16 96 01/24/17 11:06 73 16 01/24/17 11:05 165/84 01/24/17 11:01 69 12 96 01/24/17 11:01 70 12 01/24/17 11:00 154/83 01/24/17 10:57 36.4 75 16 154/83 98 Nasal Cannula 3 01/24/17 10:56 70 10 01/24/17 10:56 70 10 95 01/24/17 10:55 155/84 01/24/17 10:53 70 15 95 01/24/17 10:53 70 15 01/24/17 10:50 157/82 01/24/17 10:48 73 14 01/24/17 10:48 72 14 100 01/24/17 10:45 150/80 01/24/17 10:43 69 14 01/24/17 10:43 68 14 99 01/24/17 10:40 150/78 01/24/17 10:38 70 15 01/24/17 10:38 70 15 99 01/24/17 10:35 151/76 01/24/17 10:33 70 14 100 01/24/17 10:33 70 14 01/24/17 10:32 69 16 01/24/17 10:32 69 16 100 01/24/17 10:30 148/73 01/24/17 10:27 73 16 100 01/24/17 10:27 73 16 01/24/17 10:25 157/78 01/24/17 10:22 71 9 01/24/17 10:22 71 9 100 01/24/17 10:20 148/80 Physical Exam General Appearance: WD/WN, no apparent distress Eyes: normal inspection, EOMI, sclerae normal Neck: supple, no adenopathy, no JVD, trachea midline Respiratory/Chest: chest non-tender, lungs clear, normal breath sounds, no respiratory distress, no accessory muscle use Cardiovascular: regular rate, rhythm, no edema, no gallop, no JVD, no murmur Abdomen: normal bowel sounds, non tender, soft, no organomegaly Extremities: no pedal edema, no calf tenderness, normal capillary refill, pelvis stable, + pertinent finding (left shoulder tender, decreased ROM) Neurologic/Psychiatric: sock turner II-XII nml as tested, no motor/sensory deficits, alert, normal mood/affect, oriented x 3 Skin: normal color, warm/dry, no rash Laboratory Results Last 24 Hours Test 01/24/17 12:06 01/24/17 17:17 01/24/17 20:47 01/25/17 05:20 Bedside Glucose 222 mg/dl 238 mg/dl 287 mg/dl Sodium Level 143 mmol/L Potassium Level 4.7 mmol/L Chloride Level 111 mmol/L Carbon Dioxide Level 24 mmol/L Anion Gap 8.0 mmol/L Blood Urea Nitrogen 24 mg/dl Creatinine 0.79 mg/dl Est Creatinine Clear Calc Drug Dose 68.4 ml/min Estimated GFR () 88.5 Estimated GFR (Non- 76.4 BUN/Creatinine Ratio 30.4 Random Glucose 140 mg/dl Calcium Level 8.3 mg/dl Test 01/25/17 05:30 01/25/17 08:14 White Blood Count 7.32 K/uL Red Blood Count 3.11 M/uL Hemoglobin 9.7 g/dL Hematocrit 30.8 % Mean Corpuscular Volume 99.0 fL Mean Corpuscular Hemoglobin 31.2 pg Mean Corpuscular Hemoglobin Concent 31.5 g/dl RDW Standard Deviation 46.3 fL RDW Coefficient of Variation 12.8 % Platelet Count 217 K/uL Mean Platelet Volume 9.2 fL Hepatitis C Antibody Screen NEG Bedside Glucose 146 mg/dl Assessment and Plan s/p shoulder surgery - per ortho, pain is well controlled DVT proph - per ortho given her immediate post op status DM -A1c 7.8, modestly well controlled as outpatient - continue metformin and glyburide with Novolog while she is here on discharge just continue all of her prior medications HTN -continue losartan, volume is normal, Cr stable -continue metoprolol Hyperlipidemia -continue pravachol GERD -continue PPI patient is stable medically, will sign off at this time, continue her prior medications on discharge
--- NOTE | 2017-01-25 10:41 | Anesthesiology Progress Note ---
Anesthesia Post Op Note Date & Time January 25, 2017 at 10:40 Vital Signs Vital Signs Past 12 Hours Date Time Temp Pulse Resp B/P Pulse Ox O2 Delivery O2 Flow Rate FiO2 01/25/17 08:36 97 Room Air 01/25/17 08:00 Room Air 01/25/17 07:45 36.6 62 12 134/78 97 Room Air 01/25/17 06:56 36.6 59 20 123/80 100 Room Air 01/25/17 03:10 36.7 65 16 128/68 97 Nasal Cannula 2.0 01/24/17 23:40 36.6 72 16 103/59 100 Nasal Cannula 2.0 Notes Mental Status: alert / awake / arousable, participated in evaluation Pt Amnestic to Procedure: Yes Nausea / Vomiting: adequately controlled Pain: adequately controlled Airway Patency, RR, SpO2: stable & adequate BP & HR: stable & adequate Hydration State: stable & adequate Neuraxial Anesthesia: sensory block resolved Anesthetic Complications: no major complications apparent
[2017-01-25] MEDS ORDERED: NURSING VERBAL MED ORDER ONE ×2 (19:15→22:00)
[2017-01-25] MEDS ORDERED: TRAMADOL HCL 50 MG TAB PO PRN (19:30)
[2017-01-25] MEDS ORDERED: PROMETHAZINE HCL INJ 25 MG in SODIUM CHLORIDE 0.9% 50ML 50 ML IV ONE (19:30)
[2017-01-25] MEDS: METOPROLOL SUCC 50MG EXT REL TAB PO SCH (20:43)
[2017-01-25] MEDS: PRAVASTATIN SOD 20 MG TAB PO SCH (20:44)
[2017-01-25] MEDS: LOSARTAN POTASSIUM 50 MG TAB PO SCH (20:44)
[2017-01-26] MEDS: OXYCODONE HCL IR 5 MG TAB (IMMEDIATE RELEASE) PO PRN (01:12)
[2017-01-26] MEDS: ACETAMINOPHEN 500 MG TAB PO SCH (06:12)
[2017-01-26 06:39] LABS: HEMATOCRIT 32.1 % (37-47); MEAN CELL VOLUME 100.3 fL (80-100); MEAN CORPUSCULAR HEMOGLOBIN 31.6 pg (25-34); MEAN CORPUSCULAR HGB CONC 31.5 g/dl (32-36); MEAN PLATELET VOLUME 9.3 fL (7.4-10.4); PLATELET COUNT 233 K/uL (130-400); WHITE BLOOD COUNT 6.86 K/uL (4.8-10.8)
[2017-01-26 06:59] VITALS: BP 106/65; PULSE 60; TEMP 36.9; O2SAT 90
[2017-01-26 07:11] LABS: BUN/CREATININE RATIO 19.6 (10-20); CALCIUM 8.4 mg/dl (8.5-10.1); CREATININE 1.1 mg/dl (0.60-1.20); POTASSIUM 4.4 mmol/L (3.5-5.1)
--- NOTE | 2017-01-26 07:48 | Orthopedic Progress Note ---
Orthopedic Progress Note Date of Service January 26, 2017. Subjective Post OP Day: 2 Reports: feeling well, pain controlled w PO medications, Denies: SOB, calf pain , chest pain, complaints, light headedness, nausea / vomiting Objective N/V intact, capillary refill less than 2 sec., dressing C/D/I, A&O x3 Sling in tact, fingers mobile. Date Time Temp Pulse Resp B/P Pulse Ox O2 Delivery O2 Flow Rate FiO2 01/26/17 06:59 36.9 60 16 106/65 90 Room Air 01/25/17 23:39 36.9 60 14 119/72 98 Room Air 01/25/17 23:35 Room Air 01/25/17 20:42 69 114/74 01/25/17 16:22 36.9 64 17 117/73 97 Room Air 01/25/17 15:35 Room Air 01/25/17 11:21 36.6 68 12 110/82 98 Room Air 01/25/17 08:36 97 Room Air 01/25/17 08:00 Room Air Laboratory Results 24 Hours: Test 01/26/17 06:00 Hematocrit 32.1 % Hemoglobin 10.1 g/dL Assessment & Plan Assessment: POD #2, Left Reversed TSA, biceps tenodesis Plan: Limited PT as ordered, No formal PT needed, only HEP as instructed. D/C planning- Home Appreciate medicine input. Inhouse Planning Pain Management: Morphine, PO Tylenol, Oxy IR DVT Prophylaxis: TEDs, SCDs Discharge Planning Discharge Planning: home Pain Management: PO Tylenol, Oxy IR DVT Prophylaxis: TEDs
[2017-01-26] MEDS ORDERED: ONDA8TAB6 PO (07:50)
[2017-01-26] MEDS ORDERED: RXC5 PO (07:50)
[2017-01-26] MEDS ORDERED: ACET-1138 PO (07:50)
[2017-01-26] MEDS: INSULIN ASPART 100 UNITS/ML 3 ML PEN SC SCH (08:00)
[2017-01-26] MEDS: DOCUSATE SODIUM 100 MG CAP PO SCH (09:26)
[2017-01-26] MEDS: FERROUS SULFATE 325 MG TAB PO SCH (09:26)
[2017-01-26] MEDS: ASCORBIC ACID 500 MG TAB PO SCH (09:27)
[2017-01-26] MEDS: MULTIVITAMIN TAB PO SCH (09:27)
[2017-01-26] MEDS: PANTOprazole SOD 40 MG TAB PO SCH (09:27)
[2017-01-26] MEDS: METFORMIN HCL 500 MG TAB PO SCH (09:27)
[2017-01-26 10:54] VITALS: BP 106/65; PULSE 60; TEMP 36.9; O2SAT 90
--- NOTE | 2017-02-11 21:34 | DISCHARGE SUMMARY ---
SUBJECTIVE: This is a 67-year-old female patient of Dr. José's complaining of chronic left shoulder pain, longstanding, now progressively getting worse. She has been diagnosed with end-stage osteoarthritis and insufficient rotator cuff. The patient wishes to proceed with a left reverse total shoulder arthroplasty. PAST MEDICAL HISTORY: Hypertension, diabetes mellitus, anemia, osteoarthritis, spine problems, acid reflux and obesity. POSTOPERATIVE COURSE: The patient underwent a left reversed total shoulder arthroplasty. She had no postoperative complications. She did well and was discharged home on postoperative day #2. PHYSICAL EXAMINATION: LEFT SHOULDER: Incision was clean, dry and intact. [place] were intact. Skin edges were approximated well. There was no redness or drainage. Neurologically and neurovascularly she is intact in the left upper extremity. DIAGNOSES: Status post left total shoulder reversed arthroplasty. She has a history of hypertension, diabetes mellitus, anemia, osteoarthritis, spine problems, acid reflux and obesity. PLAN: The patient was discharged home with home exercises as directed. She will follow up with Dr. José in the office as scheduled. No formal physical therapy right now. She will continue her preadmission medications as well as pain medication.
== END 2017-01-26 12:29 | disposition home or self-care (01) | DRG 483 ==
LOC: ENRESERVDT → ENRESERVTM → C.ACU 05:12 → C.3E 07:00
PROVIDERS: ADMIT Orthopaedic Surgery Sports Medicine; ATTEND Orthopaedic Surgery Sports Medicine
PROC: 0RRK00Z Replacement of Left Shoulder Joint with Reverse Ball and Socket Synthetic Substitute, Open Approach (ICD-10-PCS; principal; 2017-01-24 07:30)
PROC: 0LS40ZZ Reposition Left Upper Arm Tendon, Open Approach (ICD-10-PCS; principal; 2017-01-24 07:30)
DX: M19.012 Primary osteoarthritis, left shoulder (principal); M75.102 Unspecified rotator cuff tear or rupture of left shoulder, not specified as traumatic; I12.9 Hypertensive chronic kidney disease with stage 1 through stage 4 chronic kidney disease, or unspecified chronic kidney disease; E11.22 Type 2 diabetes mellitus with diabetic chronic kidney disease; E11.65 Type 2 diabetes mellitus with hyperglycemia; N18.3 Chronic kidney disease, stage 3 (moderate); K21.9 Gastro-esophageal reflux disease without esophagitis; E78.5 Hyperlipidemia, unspecified; D64.9 Anemia, unspecified; F17.200 Nicotine dependence, unspecified, uncomplicated; E66.9 Obesity, unspecified; Z68.32 Body mass index [BMI] 32.0-32.9, adult; Z96.653 Presence of artificial knee joint, bilateral; Z79.84 Long term (current) use of oral hypoglycemic drugs; Z79.899 Other long term (current) drug therapy

== ENCOUNTER 2019-04-07 04:48 | Inpatient (IN) ==
--- NOTE | 2019-03-18 08:55 | PAT Medication Instructions ---
Medication Instructions Date of Service March 18, 2019 Home Medications ascorbic acid (vitamin C) [Vitamin C] 500 mg PO QAM biotin 10,000 mcg PO QAM cyanocobalamin (vitamin B-12) [Vitamin B-12] 1,000 mcg PO QPM ferrous sulfate [iron] 325 mg PO QAM glyburide 5 mg PO QAM linagliptin [Tradjenta] 5 mg PO QAM losartan 100 mg PO QPM meloxicam 7.5 mg PO QDL metformin 1,000 mg PO BID metoprolol tartrate 50 mg PO QPM [id number] [Multivitamin Women 50 Plus] 1 tab PO QAM pravastatin 40 mg PO QPM ASK your surgeon for instructions meloxicam 7.5 mg PO QDL STOP taking 2 weeks before surgery (or as soon as possible if surgery is within 2 weeks) biotin 10,000 mcg PO QAM DO NOT take the morning of surgery ascorbic acid (vitamin C) [Vitamin C] 500 mg PO QAM ferrous sulfate [iron] 325 mg PO QAM glyburide 5 mg PO QAM linagliptin [Tradjenta] 5 mg PO QAM metformin 1,000 mg PO BID Multivitamin Women 50 Plus 1 tab PO QAM Take evening before surgery cyanocobalamin (vitamin B-12) [Vitamin B-12] 1,000 mcg PO QPM losartan 100 mg PO QPM metformin 1,000 mg PO BID metoprolol tartrate 50 mg PO QPM pravastatin 40 mg PO QPM Other Notes If you have any questions please call us at [phone] or [phone] or [phone] or [phone]
--- NOTE | 2019-03-18 12:28 | Anesthesiology Consultation ---
Date of Service March 18, 2019 Assessment & Plan (1) Encounter for pre-operative examination: - Check BSG AM DOS - Mild K+ elevation 5.2 on preop labs; will recheck K+ AM DOS. - Left lower chest electric stimulator device: noted on preop CXR. Per patient, this was a "bone stimulator" placed with remote back surgery that has been non- functioning for years. She states she does not have a remote (never had), card or further details. ANDI/Berniec/Vasiliy Snow made aware. Chart Review Chart Review: Acceptable Risk for Surgery and Patient seen in Pre Admission Testing Teaching & Discussion Pre-Anesthesia Teaching/Discussion Notes: Instructed NPO after midnight before surgery,except medications with 15 cc of water. Medication instructions provided according to the PAT guidelines. History Surgery Operation Date: 04/07/19 07:00 Proposed Procedures p Right Reverse Total Shoulder Arthroplasty, Distal Clavicle Excision, Hardware Removal - Colten José MD Height/Weight Height: 5 ft 4 in Weight: 76.7 kg Allergies Allergy/AdvReac Type Severity Reaction Status Date / Time No Known Allergies Allergy Unknown Verified 03/11/19 14:01 Medications Home Medications Medication Instructions Recorded Confirmed Last Taken ascorbic acid (vitamin C) [Vitamin 500 mg PO QAM 03/11/19 03/11/19 Unknown C] biotin 10,000 mcg PO QAM 03/11/19 03/11/19 Unknown cyanocobalamin (vitamin B-12) 1,000 mcg PO QPM 03/11/19 03/11/19 Unknown [Vitamin B-12] ferrous sulfate [iron] 325 mg PO QAM 03/11/19 03/11/19 Unknown glyburide 5 mg PO QAM 03/11/19 03/11/19 Unknown linagliptin [Tradjenta] 5 mg PO QAM 03/11/19 03/11/19 Unknown losartan 100 mg PO QPM 03/11/19 03/11/19 Unknown meloxicam 7.5 mg PO QDL 03/11/19 03/11/19 Unknown metformin 1,000 mg PO BID 03/11/19 03/11/19 Unknown metoprolol tartrate 50 mg PO QPM 03/11/19 03/11/19 Unknown [id number]-[id number]-lutein 1 tab PO QAM 03/11/19 03/11/19 Unknown [Multivitamin Women 50 Plus] pravastatin 40 mg PO QPM 03/11/19 03/11/19 Unknown Past Medical History Medical History Anemia CKD (chronic kidney disease) STAGE III Diabetes mellitus, type 2 NIDDM GERD (gastroesophageal reflux disease) CONTROLLED Hyperlipidemia Hypertension Osteoarthritis Exercise / Class Metabolic Activity III < 4 Walking/Shop/Light housework Past Family History Family History Mother Family history of diabetes mellitus Daughter Family history of diabetes mellitus Sister Family history of diabetes mellitus Uncle Family history of diabetes mellitus Past Surgical History Surgical History History of arthroscopy of right shoulder History of carpal tunnel release of both wrists History of ganglion cyst REMOVAL History of left shoulder replacement Left reverse TSA: 01/24/17: Grade 1 view, MAC#3, ETT 7.5 + PNB at [facility] History of lumbar fusion History of partial hysterectomy History of total bilateral knee replacement (TKR) Past Anesthesia History No Hx of Anesthesia Complications and No Family Hx of Anesthesia Complications History of PONV No Hx of PONV and No Hx of Motion Sickness Social History Smoking Status: Current some day smoker tobacco type: cigarettes Smoking cigarettes per day: CURRENT 3-4 CIGARETTES/DAY; TOTAL USE X 17 YEARS Do You Dip or Chew Tobacco: No Hx Alcohol Use: Yes alcohol intake frequency: holidays/special occasions only Hx Substance Use: No Review of Systems Patient denies chest pain, shortness of breath, cough, wheezing, palpitations. Physical Exam Vital Signs VITALS BP 113/68 P 72 TEMP 98.3 SP02 97%RA RESP 14 PHYSICAL Full neck and c-spine range of motion. Full TMJ range of motion. TMD 3.5 finger breaths Mallampati Score 1 Dentition: upper partial Lungs: clear throughout to auscultation Cardiac: regular rate and rhythm, no murmurs noted Spine: normal Carotid arteries: negative bruit Extremities: no edema Testing Laboratory Results 03/18/19 12:47 03/18/19 12:47 PT 10.1 Seconds (9.0-12.0) 03/18/19 12:47 INR 1.0 (0.9-1.1) 03/18/19 12:47 APTT 26.1 Seconds (21.0-31.0) 03/18/19 12:47 Hemoglobin A1c 7.7 % (4.5-5.6) H 03/18/19 12:47 Urine Color Yellow 03/18/19 Unknown Urine Appearance Clear (Clear) 03/18/19 Unknown Urine pH 5.0 (4.5-7.5) 03/18/19 Unknown Ur Specific [place] 1.015 (1.000-1.030) 03/18/19 Unknown Urine Protein Negative (Negative) 03/18/19 Unknown Urine Glucose (UA) Negative (Negative) 03/18/19 Unknown Urine Ketones Negative (Negative) 03/18/19 Unknown Urine Nitrite Negative (Negative) 03/18/19 Unknown Ur Leukocyte Esterase Negative (Negative) 03/18/19 Unknown Blood Type A Positive 03/18/19 12:47 Antibody Screen NEGATIVE 03/18/19 12:47 Electrocardiogram Date: 03/18/19 SR with short KS at 66bpm. Chest X-Ray Date: 03/18/19 Findings: + NAD There are postsurgical changes of a left humeral arthroplasty. There are postsurgical changes within the right shoulder with soft tissue anchors visualized at the level of the humeral head. There are postsurgical changes present within the lumbar spine. There is a electric stimulator device projected over the left lower chest.
--- NOTE | 2019-03-18 13:18 | XRay Report ---
XR chest Pre-admission PA/Lat CLINICAL HISTORY: Preoperative chest COMPARISON STUDY: 12/12/2016 FINDINGS: The cardiac and mediastinal contours are normal. There is no evidence of focal pulmonary co nsolidation. There is no evidence of failure. No pleural effusions are visualized.[There are postsurg ical changes of a left humeral arthroplasty. There are postsurgical changes within the right shoulder with soft tissue anchors visualized at the level of the humeral head. There are postsurgical changes present within the lumbar spine. There is a electric stimulator device projected over the left lower chest. IMPRESSION: No active disease in the chest. Electronically signed by: Miguelangel Aguiar M.D. 03/18/2019 1:16 PM
[2019-03-18 14:44] LABS: Basophils # (auto) 0.02 K/uL (0-0.2); Basophils % (auto) 0.4 %; Eosinophils # (auto) 0.06 K/uL (0-0.5); Eosinophils % (auto) 1.1 %; Hemoglobin 11.1 g/dL (12.0-16.0); Immature Granulocytes # (auto) 0.01 K/uL (0.00-0.02); Immature Granulocytes % (auto) 0.2 %; Lymphocytes # (auto) 1.46 K/uL (1.2-3.4); Lymphocytes % (auto) 27.4 %; Mean Corpuscular Hgb Conc 32.6 g/dL (32-36); Mean Corpuscular Volume 98.8 fL (80-100); Mean Platelet Volume 9.8 fL (7.4-10.4); Monocytes # (auto) 0.28 K/uL (0.11-0.59); Monocytes % (auto) 5.3 %; Neutrophils % (auto) 65.6 %; Platelet Count 211 K/uL (130-400); RDW Coefficient of Variation 12.7 % (11.5-14.5); RDW Standard Deviation 45.8 fL (36.4-46.3); Red Blood Count 3.44 M/uL (4.2-5.4); White Blood Count 5.33 K/uL (4.8-10.8)
[2019-03-18 14:47] LABS: Appearance Urine Clear (Clear); Bilirubin Urine Negative (Negative); Blood Urine Negative (Negative); Color Urine Yellow; Glucose Urine UA Negative (Negative); Ketones Urine Negative (Negative); Leukocyte Esterase Urine Negative (Negative); Nitrite Urine Negative (Negative); Protein Urine Negative (Negative); Specific Gravity Urine 1.015 (1.000-1.030); Urobilinogen Urine Negative (Negative)
[2019-03-18 14:51] LABS: Albumin Level 3.6 gm/dl (3.4-5.0); BUN Creatinine Ratio 23.5 (10-20); Creatinine Clr Calc Pharmacy 39.8 ml/min; Est GFR (African American) 47.8; Est GFR (Non-African American) 41.2; Potassium 5.2 mmol/L (3.5-5.1)
[2019-03-18 14:57] LABS: Partial Thromboplastin Time 26.1 Seconds (21.0-31.0); Prothrombin Time 10.1 Seconds (9.0-12.0)
[2019-03-19 06:25] LABS: Estimated Average Glucose 174 mg/dl; Hemoglobin A1C 7.7 % (4.5-5.6)
--- NOTE | 2019-04-06 19:37 | History and Physical Report ---
DATE OF ADMISSION: 04/07/2019 CHIEF COMPLAINT: Chronic right shoulder pain. HISTORY OF PRESENT ILLNESS: This is a 69-year-old female patient of Dr. José, who is complaining of chronic right shoulder pain, longstanding, now progressively getting worse. The patient has failed conservative treatment including injections and anti-inflammatories. She has been diagnosed with end-stage osteoarthritis per clinical and radiographic examinations in her shoulder and wishes to proceed with a right reversed total shoulder arthroplasty and distal clavicle excision. PAST MEDICAL HISTORY: Hypertension, diabetes mellitus, anemia, rheumatoid arthritis, osteoarthritis, neck problems, acid reflux and obesity. SOCIAL HISTORY: Social smoker. Nondrinker. PAST SURGICAL HISTORY: Total shoulder replacement on the left, lower back surgery, bilateral total knee replacements, hysterectomy and rotator cuff surgery. FAMILY HISTORY: Noncontributory. REVIEW OF SYSTEMS: Chronic right shoulder pain and weakness. Otherwise, denies any shortness of breath, chest pain, nausea, vomiting or any other joint complaints. MEDICATIONS: 1. Metoprolol 50 mg daily. 2. Tradjenta 5 mg daily. 3. Iron. 4. Iron plus vitamin C 65 mg/125 2 tablets daily. 5. Calcium 500 plus vitamin D3 daily. 6. Pravastatin 20 mg 2 tablets daily. 7. Metformin 500 mg one in the morning and two in the evening. 8. Biotin 10,000 mcg daily. 9. Losartan 100 mg daily. 10. Glyburide 5 mg one half tablet daily. ALLERGIES: No known drug allergies. PHYSICAL EXAMINATION: GENERAL: Well-developed, well-nourished 69-year-old female, in no acute distress. She is alert and oriented x3 and pleasant. HEENT: Normocephalic and atraumatic. Extraocular motions are intact. Pupils are equal and reactive to light. HEART: Regular rate and rhythm. No murmurs. LUNGS: Clear. ABDOMEN: Soft and nontender. Bowel sounds present. EXTREMITIES: Right shoulder active range of motion is 160, passively is 0-20. The patient has pain with motion. She has 3/5 strength globally. NEUROLOGIC: Neurovascularly, she is intact in her right upper extremity. DIAGNOSES: Right shoulder rotator cuff arthropathy and acromioclavicular arthritis, hypertension, diabetes mellitus, anemia, rheumatoid arthritis, osteoarthritis, neck problems, acid reflux and obesity. PLAN: The patient was advised of her diagnoses. Indications, risks, benefits and postoperative course have all been reviewed. The patient wished to proceed with a right reversed total shoulder arthroplasty and distal clavicle excision. Necessary consent forms and preoperative testing were copmpleted. EBENEZER
[2019-04-07] MEDS ORDERED: CEFAZOLIN 1000MG 1,000 MG/7.5 ML SYR IV SCH (06:00)
[2019-04-07] MEDS ORDERED: GABAPENTIN 300 MG CAP PO SCH (06:00)
[2019-04-07] MEDS ORDERED: METOCLOPRAMIDE HCL 10 MG TABLET PO SCH (06:00)
[2019-04-07] MEDS ORDERED: CeleBREX 200 MG CAP PO SCH (06:00)
[2019-04-07] MEDS ORDERED: LR 15ML/HR IV SCH (06:00)
[2019-04-07] MEDS ORDERED: FAMOTIDINE 20 MG TAB PO SCH (06:00)
[2019-04-07] MEDS ORDERED: dexAMETHasone 4 MG TAB PO SCH (06:00)
[2019-04-07] MEDS ORDERED: ACETAMINOPHEN 500 MG TAB PO SCH (06:00)
[2019-04-07] MEDS ORDERED: ROCURONIUM BROMIDE 10 MG/ML 5 ML VIAL ONE ×3 (06:13→07:35)
[2019-04-07] MEDS ORDERED: PROPOFOL IV EMULSION 10 MG/ML 20 ML VIAL IV ONE (06:13)
[2019-04-07] MEDS ORDERED: LIDOCAINE HCL 2% 2 ML VIAL/AMP(20MG/ML) INFIL ONE (06:13)
[2019-04-07] MEDS ORDERED: MIDAZOLAM HCL 1 MG/ML 2ML VIAL ONE (06:13)
[2019-04-07] MEDS ORDERED: ONDANSETRON INJ 2 MG/ML 2 ML VIAL ONE (06:14)
[2019-04-07] MEDS ORDERED: DEXAMETHASONE SOD INJ 4 MG/ML VIAL ONE (06:14)
[2019-04-07] MEDS ORDERED: fentaNYL citrate 100 MCG/2 ML VIAL ONE (06:14)
[2019-04-07] MEDS ORDERED: ROPIVACAINE 0.5% 5 MG/ML 30 ML VIAL ONE (06:30)
[2019-04-07] MEDS ORDERED: EpINEphrine HCL INJ 1 MG/ML 1ML SYRINGE ONE (06:35)
[2019-04-07] MEDS ORDERED: BACITRACIN INJ 50,000 UNIT VIAL ONE (06:35)
[2019-04-07] MEDS ORDERED: ATROPINE SULFATE 0.1 MG/ML 10ML SYR IV PRN (06:49)
[2019-04-07] MEDS ORDERED: ePHEDrine sulfate 50 MG/ML AMP IV PRN (06:49)
[2019-04-07] MEDS ORDERED: ONDANSETRON INJ 2 MG/ML 2 ML VIAL IV PRN ×2 (06:49→11:22)
[2019-04-07] MEDS ORDERED: fentaNYL citrate 100 MCG/2 ML VIAL IV PRN (06:49)
--- NOTE | 2019-04-07 06:58 | History & Physical Bridge Note ---
Date of Service April 07, 2019 History & Physical Bridge Note I have examined the patient, reviewed the History & Physical and in the interval since the performance of the History & Physical I have noted the following changes of clinical significance: no changes noted
[2019-04-07] MEDS ORDERED: ePHEDrine sulfate 50 MG/ML SYR ONE (07:45)
[2019-04-07] MEDS ORDERED: PHENYLEPHRINE 100MCG/ML 5ML SYR ONE (07:45)
[2019-04-07] MEDS ORDERED: GLYCOPYRROLATE 0.2 MG/ML VIAL ONE ×2 (07:49→07:50)
[2019-04-07] MEDS ORDERED: NEOSTIGMINE METHYLSULFATE 5 MG/5 ML SYR ONE (07:50)
--- NOTE | 2019-04-07 09:30 | Post Operative Brief Note ---
Immediate Post Op Note v1 Date of Surgery April 07, 2019 Pre & Post Diagnosis Operation Date: 04/07/19 07:00 Pre-Op Diagnosis: Right shoulder rotator cuff arthropathy and acromioclavicular arthritis, retained hardware status post failed rotator cuff repair Post-Op Diagnosis: Right shoulder rotator cuff arthropathy and acromioclavicular arthritis, retained hardware status post failed rotator cuff repair Procedure Operation Date: 04/07/19 07:00 Actual Procedures p Right Reverse Total Shoulder Arthroplasty, Distal Clavicle Excision, Hardware Removal(Right) - Colten José MD Surgeon Colten José MD Jewelry [employer]ater Maxi BLOOD Estimated Blood Loss 30 Findings Consistent with Post-Op Diagnosis Specimens Humeral head and distal clavicle Drains Hemovac Drain Anesthesia Type General Regional Complications none Disposition Accompanied Patient To Recovery: No Disposition: Recovery Room Overlapping Procedure I was present for: the critical portions of procedure.
--- NOTE | 2019-04-07 10:11 | XRay Report ---
XR shoulder RT min 2V routine CLINICAL HISTORY: Post shoulder surgery COMPARISON: None. DISCUSSION: There are postsurgical changes of a reverse total right shoulder arthroplasty. There are overlying skin ace. There is an overlying surgical drain. There is air within the soft tissues co nsistent with recent surgery. There is no evidence of dislocation. IMPRESSION: Postsurgical changes of a reverse total right shoulder arthroplasty. No evidence of dislo cation Electronically signed by: Miguelangel Aguiar M.D. 04/07/2019 10:10 AM
--- NOTE | 2019-04-07 10:51 | Anesthesiology Progress Note ---
Date of Service April 07, 2019 Anesthesia Post Procedure Vital Signs Vital Signs: Temp Pulse Pulse Resp BP Pulse Ox 04/07/19 10:45 72 12 114/64 100 04/07/19 10:35 97.3 F L 78 18 122/74 100 04/07/19 10:25 75 16 125/55 L 98 04/07/19 10:15 78 17 134/68 100 04/07/19 10:05 77 16 117/79 100 04/07/19 09:55 84 19 140/67 100 04/07/19 09:47 97.5 F L 83 16 134/78 100 04/07/19 05:31 97.7 F 62 20 163/78 H 97 Pain Intensity Right Shoulder: Pain Intensity: 0 Transfer of Care Handoff Completed per policy Notes Mental Status: alert / awake / arousable and participated in evaluation Patient Amnestic to Procedure: Yes Nausea / Vomiting: adequately controlled Pain: adequately controlled Airway Patency, RR, SpO2: stable & adequate BP & HR: stable & adequate Hydration State: stable & adequate Anesthetic Complications: no major complications apparent and Pt Satisfied with anesthetic care
[2019-04-07] MEDS ORDERED: HYDROmorphone INJ 0.5 MG/0.5 ML SYR IV PRN (11:22)
[2019-04-07] MEDS ORDERED: BISACODYL 10 MG SUPP PR PRN (11:22)
[2019-04-07] MEDS ORDERED: NALOXONE HCL 0.4 MG/1 ML VIAL/CARP IV PRN (11:22)
[2019-04-07] MEDS ORDERED: MAGNESIUM HYDROXIDE SUSP 30 ML UDC PO PRN (11:22)
[2019-04-07] MEDS ORDERED: PHARMACY GLYCEMIC MGMT CONSULT PRN (11:30)
[2019-04-07] MEDS ORDERED: DEXTROSE 50% 50 ML SYRINGE IV PRN (11:45)
[2019-04-07] MEDS ORDERED: CARBOHYDRATES FOR HYPOGLYCEMIA PO PRN (11:45)
[2019-04-07] MEDS ORDERED: GLUCAGON FOR INJ 1 MG VIAL IM PRN (11:45)
[2019-04-07] MEDS ORDERED: GLUCOSE 40% GEL 15 GM TUBE PO PRN (11:45)
[2019-04-07] MEDS ORDERED: GLUCOSE 10 TABS/TUBE PO PRN (11:45)
[2019-04-07] MEDS ORDERED: INSULIN GLARGINE SOLOSTAR 100 UNITS/ML 3 ML PEN SC ONE (12:00)
--- NOTE | 2019-04-07 12:33 | Pharmacy Report ---
Glycemic Control Consultation - Date of Service April 07, 2019 - Scope Scope: Glycemic Pharmacist consulted by Maxi Gibson on 04/07 for glycemic control and to write orders per [facility] inpatient glycemic control protocol - Objective Weight: 74.049 kg Accuchecks BSG (last 24hrs): 04/07/19 04/07/19 05:23 10:35 POC Glucose 145 H 215 H Laboratory Data (last 24hrs): 04/07/19 05:35 Potassium 4.7 HbA1c: Hemoglobin A1c 7.7 % (4.5-5.6) H 03/18/19 12:47 - Recent Pertinent Medications Outpatient Anti-diabetic Regimen: * glyburide 5 mg Qam, linagliptin 5 mg Qam, metformin 1gm bid (physician notes lists different dosing for medications, will need to f/u) * A1c = 7.7% 03/18/19 Risk Factors for Insulin Resistance: * Steroids: Dxm 8 mg po x 1, Dxm 4 IV x 1 in OR * Recent Surgery: POD 0 * Diet: T2DM - Assessment & Plan Assessment & Plan: ASSESSMENT: * 69 year old female now s/p R shoulder arthroplasty. PMHx significant for htn, anemia, RA, osteoarthritis. * Patient did receive steroids in the OR therefore anticipate steroid induced hyperglycemia - will utilize basal/bolus dosing post op for glycemic control * A1C of 7.7% from 03/18 - patient only managed on oral agents at home PLAN FOR INPATIENT GLYCEMIC CONTROL: * Holding outpatient oral diabetes medications * Basal insulin * Lantus 15 x 1 (~0.2 units/kg) * Bolus insulin - will add overnight checks * NovoLog per scale ACHS or Q6hrs while NPO * Goal Range: Low 110 mg/dL - High 140 mg/dL * Correction Factor: 20 mg/dL/unit * Nutritional / Prandial insulin per carb ratio of 1 unit per 7 grams CHO consumed * Please note that the plan above was derived based on current level of insulin resistance and hospital stress. These recommendations are appropriate for inpatient admission only. Plan of care upon discharge will need to be reassessed to avoid potential outpatient hypo/hyperglycemia. Thank you.
--- NOTE | 2019-04-07 12:56 | Hospitalist Consultation ---
Date of Consultation April 07, 2019 Assessment & Plan (1) Status post reverse total replacement of right shoulder: Patient with history of right shoulder rotator cuff arthropathy and AC arthritis, failed rotator cuff repair s/p right reverse total shoulder arthroplasty, distal clavicle excision and removal of hardware performed by Dr. José today. Surgery was well tolerated. No complications identified. Patient presently pain free, no nausea. No additional complaints -Pain, nausea and bowel regimen per primary team -Neurovascular checks -Drain management -Cefazolin 1gm IV q 8 hours per primary team Present on Admission?: Yes (2) Hypertension: Blood pressure presently well controlled, 114/73. -Pain control as above -Continue Losartan 100mg po daily -Continue Metoprolol 50mg po daily -Continue to monitor Present on Admission?: Yes (3) Hyperlipidemia: Chronic. -Continue Pravastatin 40mg po daily Present on Admission?: Yes (4) Diabetes: Diabetes fairly well controlled on outpatient regimen of Metformin, Glyburide and Tradjenta. HgAIC=7.7 on 03/18/19. Blood sugar elevated at present, 215. Decadron administered perioperatively. Pharmacy has been consulted for Glycemic management -Lantus 15u administered, additional dosing per Pharmacy -ISS, correction factor=20, CR=7 Present on Admission?: Yes (5) CKD (chronic kidney disease): Patient with history of CKD. BUN=31 and Cr=1.3 on labs from 03/18/19. -Chemistry panel in AM -Avoid nephrotoxic agents Thank you for this consult. We will continue to follow. Present on Admission?: Yes History of Present Illness Reason for Consultation: post operative medical management Attending Physician: Colten José MD History of Present Illness Dhara Pineda is a 69yo C female with history of DM, HTN, HLP and Anemia s/p right reverse total shoulder arthroplasty, distal clavicle excision and hardware removal performed by Dr. José today. The operation was well tolerated, minimal blood loss, no complications identified. Patient is resting comfortably in bed at this time. Pain is minimal. She denies nausea/vomiting. She has eaten lunch without difficulty. No additional complaints at this time. Allergies Allergy/AdvReac Type Severity Reaction Status Date / Time No Known Allergies Allergy Unknown Verified 04/07/19 05:48 Home Medications Home Medications Medication Instructions Recorded Confirmed Type ascorbic acid (vitamin C) [Vitamin 500 mg PO QAM 03/11/19 04/07/19 History C] biotin 10,000 mcg PO QAM 03/11/19 04/07/19 History cyanocobalamin (vitamin B-12) 1,000 mcg PO QPM 03/11/19 03/11/19 History [Vitamin B-12] ferrous sulfate [iron] 325 mg PO QAM 03/11/19 04/07/19 History glyburide 5 mg PO QAM 03/11/19 04/07/19 History linagliptin [Tradjenta] 5 mg PO QAM 03/11/19 04/07/19 History losartan 100 mg PO QPM 03/11/19 04/07/19 History meloxicam 7.5 mg PO QDL 03/11/19 04/07/19 History metformin 1,000 mg PO BID 03/11/19 04/07/19 History [id number]-[id number]-lutein 1 tab PO QAM 03/11/19 04/07/19 History [Multivitamin Women 50 Plus] pravastatin 40 mg PO QPM 03/11/19 04/07/19 History metoprolol succinate 50 mg PO DAILY 04/07/19 04/07/19 History Patient History Family History Mother Family history of diabetes mellitus Daughter Family history of diabetes mellitus Sister Family history of diabetes mellitus Uncle Family history of diabetes mellitus Social History Preferred Language: German Communication Ability: Effective Beliefs That Will Affect Care: None Current Living Situation: Alone Feels Safe at Home: Yes Safety Concerns: Feels Safe At This Time Smoking Status: Current some day smoker Tobacco Type: cigarettes Cigarettes Per Day: CURRENT 3-4 CIGARETTES/DAY; TOTAL USE X 17 YEARS Do You Dip or Chew Tobacco: No Second Hand Exposure: Yes (AT WORK - 5-6 DAYS PER WEEK) Hx Alcohol Use: Yes Hx Substance Use: No Review of Systems Review of Systems: All systems reviewed & are unremarkable except as noted in HPI & below Physical Exam Physical Exam: General: patient resting comfortably, NAD, non-toxic in appearance, AA&O x 4 Skin: warm, dry, no rashes or lesions, pressure dressing on right shoulder in place, c/d/i, drain in place with serosanguinous output HEENT: NC/AT, PERRL, EOMI, anicteric sclera, conjunctiva without injection, external ear normal to inspection and nontender, nares patent, moist mucus membranes, dentition intact, no oropharyngeal lesions, neck supple, trachea midline, no LAD, no thyromegaly, no JVD Heart: +S1/S2, regular, no m/r/g Lungs: equal air entry bilaterally, no rales/rhonchi/wheezes Abd: +BS, soft, NT/ND, no masses/organomegaly/ascites Ext: warm, 2+ pulses in UE/LE bilaterally, no clubbing/cyanosis or edema Neuro: nonfocal, patient AA&O x 4, speech intact, no facial droop, moving all extremities on command with equal strength 5/5 Results & Data Vital Signs (Past 12 Hours) Vital Signs Temp Pulse Pulse Resp BP Pulse Ox 04/07/19 12:03 36.0 C L 88 16 118/75 96 04/07/19 11:35 36.2 C L 84 16 114/73 96 04/07/19 11:05 36.5 C 80 16 118/68 96 04/07/19 10:45 72 12 114/64 100 04/07/19 10:35 36.3 C L 78 18 122/74 100 04/07/19 10:25 75 16 125/55 L 98 04/07/19 10:15 78 17 134/68 100 04/07/19 10:05 77 16 117/79 100 04/07/19 09:55 84 19 140/67 100 04/07/19 09:47 36.4 C L 83 16 134/78 100 04/07/19 05:31 36.5 C 62 20 163/78 H 97 Laboratory Results Lab Results 03/18/19 03/18/19 03/18/19 Range/Units 12:47 12:47 12:47 WBC 5.33 (4.8-10.8) K/uL RBC 3.44 L (4.2-5.4) M/uL Hgb 11.1 L (12.0-16.0) g/dL Hct 34.0 L (37-47) % MCV 98.8 (80-100) fL MCH 32.3 (25-34) pg MCHC 32.6 (32-36) g/dL RDW Std Deviation 45.8 (36.4-46.3) fL RDW Coeff of Dana 12.7 (11.5-14.5) % Plt Count 211 (130-400) K/uL MPV 9.8 (7.4-10.4) fL Immature Gran % (Auto) 0.2 % Neut % (Auto) 65.6 % Lymph % (Auto) 27.4 % [place] % (Auto) 5.3 % Eos % (Auto) 1.1 % Baso % (Auto) 0.4 % Immature Gran # (Auto) 0.01 (0.00-0.02) K/uL Neut # (Auto) 3.50 (1.4-6.5) K/uL Lymph # (Auto) 1.46 (1.2-3.4) K/uL [place] # (Auto) 0.28 (0.11-0.59) K/uL Eos # (Auto) 0.06 (0-0.5) K/uL Baso # (Auto) 0.02 (0-0.2) K/uL PT 10.1 (9.0-12.0) Seconds INR 1.0 (0.9-1.1) APTT 26.1 (21.0-31.0) Seconds PTT Ratio 1.0 Sodium 138 (136-145) mmol/L Potassium 5.2 H (3.5-5.1) mmol/L Chloride 109 H (98-107) mmol/L Carbon Dioxide 22 (21-32) mmol/L Anion Gap 7.0 (3-11) BUN 31 H (7-18) mg/dl Creatinine 1.30 H (0.6-1.2) mg/dl Est Cr Clr Drug Dosing 39.8 ml/min Est GFR ( Amer) 47.8 Est GFR (Non-Af Amer) 41.2 BUN/Creatinine Ratio 23.5 H (10-20) Glucose 239 H (70-99) mg/dl POC Glucose (70-99) Estimat Average Glucose mg/dl Hemoglobin A1c (4.5-5.6) % Calcium 9.0 (8.5-10.1) mg/dl Albumin 3.6 (3.4-5.0) gm/dl Urine Color Urine Appearance (Clear) Urine pH (4.5-7.5) Ur Specific [place] (1.000-1.030) Urine Protein (Negative) Urine Glucose (UA) (Negative) Urine Ketones (Negative) Urine Blood (Negative) Urine Nitrite (Negative) Urine Bilirubin (Negative) Urine Urobilinogen (Negative) Ur Leukocyte Esterase (Negative) Blood Type Antibody Screen 03/18/19 03/18/19 03/18/19 Range/Units 12:47 12:47 Unknown WBC (4.8-10.8) K/uL RBC (4.2-5.4) M/uL Hgb (12.0-16.0) g/dL Hct (37-47) % MCV (80-100) fL MCH (25-34) pg MCHC (32-36) g/dL RDW Std Deviation (36.4-46.3) fL RDW Coeff of Dana (11.5-14.5) % Plt Count (130-400) K/uL MPV (7.4-10.4) fL Immature Gran % (Auto) % Neut % (Auto) % Lymph % (Auto) % [place] % (Auto) % Eos % (Auto) % Baso % (Auto) % Immature Gran # (Auto) (0.00-0.02) K/uL Neut # (Auto) (1.4-6.5) K/uL Lymph # (Auto) (1.2-3.4) K/uL [place] # (Auto) (0.11-0.59) K/uL Eos # (Auto) (0-0.5) K/uL Baso # (Auto) (0-0.2) K/uL PT (9.0-12.0) Seconds INR (0.9-1.1) APTT (21.0-31.0) Seconds PTT Ratio Sodium (136-145) mmol/L Potassium (3.5-5.1) mmol/L Chloride (98-107) mmol/L Carbon Dioxide (21-32) mmol/L Anion Gap (3-11) BUN (7-18) mg/dl Creatinine (0.6-1.2) mg/dl Est Cr Clr Drug Dosing ml/min Est GFR ( Amer) Est GFR (Non-Af Amer) BUN/Creatinine Ratio (10-20) Glucose (70-99) mg/dl POC Glucose (70-99) Estimat Average Glucose 174 mg/dl Hemoglobin A1c 7.7 H (4.5-5.6) % Calcium (8.5-10.1) mg/dl Albumin (3.4-5.0) gm/dl Urine Color Yellow Urine Appearance Clear (Clear) Urine pH 5.0 (4.5-7.5) Ur Specific [place] 1.015 (1.000-1.030) Urine Protein Negative (Negative) Urine Glucose (UA) Negative (Negative) Urine Ketones Negative (Negative) Urine Blood Negative (Negative) Urine Nitrite Negative (Negative) Urine Bilirubin Negative (Negative) Urine Urobilinogen Negative (Negative) Ur Leukocyte Esterase Negative (Negative) Blood Type A Positive Antibody Screen NEGATIVE 04/07/19 04/07/19 04/07/19 Range/Units 05:23 05:35 10:35 WBC (4.8-10.8) K/uL RBC (4.2-5.4) M/uL Hgb (12.0-16.0) g/dL Hct (37-47) % MCV (80-100) fL MCH (25-34) pg MCHC (32-36) g/dL RDW Std Deviation (36.4-46.3) fL RDW Coeff of Dana (11.5-14.5) % Plt Count (130-400) K/uL MPV (7.4-10.4) fL Immature Gran % (Auto) % Neut % (Auto) % Lymph % (Auto) % [place] % (Auto) % Eos % (Auto) % Baso % (Auto) % Immature Gran # (Auto) (0.00-0.02) K/uL Neut # (Auto) (1.4-6.5) K/uL Lymph # (Auto) (1.2-3.4) K/uL [place] # (Auto) (0.11-0.59) K/uL Eos # (Auto) (0-0.5) K/uL Baso # (Auto) (0-0.2) K/uL PT (9.0-12.0) Seconds INR (0.9-1.1) APTT (21.0-31.0) Seconds PTT Ratio Sodium (136-145) mmol/L Potassium 4.7 (3.5-5.1) mmol/L Chloride (98-107) mmol/L Carbon Dioxide (21-32) mmol/L Anion Gap (3-11) BUN (7-18) mg/dl Creatinine (0.6-1.2) mg/dl Est Cr Clr Drug Dosing ml/min Est GFR ( Amer) Est GFR (Non-Af Amer) BUN/Creatinine Ratio (10-20) Glucose (70-99) mg/dl POC Glucose 145 H 215 H (70-99) Estimat Average Glucose mg/dl Hemoglobin A1c (4.5-5.6) % Calcium (8.5-10.1) mg/dl Albumin (3.4-5.0) gm/dl Urine Color Urine Appearance (Clear) Urine pH (4.5-7.5) Ur Specific [place] (1.000-1.030) Urine Protein (Negative) Urine Glucose (UA) (Negative) Urine Ketones (Negative) Urine Blood (Negative) Urine Nitrite (Negative) Urine Bilirubin (Negative) Urine Urobilinogen (Negative) Ur Leukocyte Esterase (Negative) Blood Type Antibody Screen Diagnostic Findings XR shoulder RT min 2V routine CLINICAL HISTORY: Post shoulder surgery COMPARISON: None. DISCUSSION: There are postsurgical changes of a reverse total right shoulder arthroplasty. There are overlying skin ace. There is an overlying surgical drain. There is air within the soft tissues consistent with recent surgery. There is no evidence of dislocation. IMPRESSION: Postsurgical changes of a reverse total right shoulder arthroplasty. No evidence of dislocation Electronically signed by: Miguelangel Aguiar M.D. 04/07/2019 10:10 AM Dictated: 04/07/19 1009 Transcribed: 04/07/19 1009 * XR chest Pre-admission PA/Lat CLINICAL HISTORY: Preoperative chest COMPARISON STUDY: 12/12/2016 FINDINGS: The cardiac and mediastinal contours are normal. There is no evidence of focal pulmonary consolidation. There is no evidence of failure. No pleural effusions are visualized.[There are postsurgical changes of a left humeral arthroplasty. There are postsurgical changes within the right shoulder with soft tissue anchors visualized at the level of the humeral head. There are postsurgical changes present within the lumbar spine. There is a electric stimulator device projected over the left lower chest. IMPRESSION: No active disease in the chest. Electronically signed by: Miguelangel Aguiar M.D. 03/18/2019 1:16 PM Dictated: 03/18/19 1315 Transcribed: 03/18/19 1315 ECG Additional Comments: Sinus rhythm at 66bpm, normal axis, IA=790, QRS=96, QBd=654, no acute ischemic changes PG Care Time/CCT Total # of Minutes Spent Total Time Spent with Patient: Total time spent is greater than 50% in coordination of care (as documented) at patient's floor/unit and/or counseling patient: (1) Hypertension Hypertension type: essential hypertension Qualified Code(s): I10 - Essential (primary) hypertension (2) Hyperlipidemia Hyperlipidemia type: unspecified Qualified Code(s): E78.5 - Hyperlipidemia, unspecified (3) Diabetes Diabetes mellitus type: type 2 Diabetes mellitus termite helper insulin use: without skilled nursing use Diabetes mellitus complication status: without complication Qualified Code(s): E11.9 - Type 2 diabetes mellitus without complications (4) CKD (chronic kidney disease) Chronic kidney disease stage: stage 2 (mild) Qualified Code(s): N18.2 - Chronic kidney disease, stage 2 (mild)
[2019-04-07] MEDS: INSULIN ASPART 100 UNITS/ML 3 ML PEN SC SCH ×3 (12:58→21:14)
[2019-04-07] MEDS: ACETAMINOPHEN 500 MG TAB PO SCH ×2 (13:20→21:13)
[2019-04-07] MEDS: CEFAZOLIN 1000MG 1,000 MG/7.5 ML SYR IV SCH ×2 (14:37→22:22)
[2019-04-07] MEDS: SODIUM CHLORIDE 0.9% 1000ML 1,000 ML IV SCH (17:49)
--- NOTE | 2019-04-07 20:01 | Operative Report ---
Post Operative Report Pre & Post Diagnosis Operation Date: 04/07/19 07:00 Pre-Op Diagnosis: Right shoulder rotator cuff arthropathy and acromioclavicular arthritis, retained hardware status post failed rotator cuff repair Post-Op Diagnosis: Right shoulder rotator cuff arthropathy and acromioclavicular arthritis, retained hardware status post failed rotator cuff repair Procedure Operation Date: 04/07/19 07:00 Actual Procedures p Right Reverse Total Shoulder Arthroplasty, Distal Clavicle Excision,(Right) - Colten José MD s Hardware Removal(Right) - Colten José MD Surgeon Colten José MD Social Media Strategist Maxi BLOOD Estimated Blood Loss 30 Findings Consistent with Post-Op Diagnosis Specimens Four metallic screws and humeral head and distal clavicle Drains 2 Hemovac Anesthesia Type General Regional Complications none Disposition Accompanied Patient To Recovery: No Disposition: Recovery Room Indications 69-year female with chronic right shoulder pain failed conservative management. Patient has a large retracted irreparable rotator cuff tear. Status post successful reverse replacement left shoulder. Radiographically he has more significant AC joint osteoarthritis. Description of Procedure The patient was taken to the operating room and anesthetized under regional block and general anesthetic. The patient was positioned on the operating table in a 30 beachchair position with a towel roll under the medial border of the right scapula. The arm was draped free to be able to manipulate the shoulder as needed. The right upper extremity was prepped and draped in usual sterile fashion. Exam demonstrated 130 degrees range of motion 80 degrees abduction 40 degrees external rotation bjpr-[id number] crepitation. An anterior deltopectoral approach was performed. A longitudinal incision was made in the deltopectoral interval. The skin was incised sharply. Subcutaneous flaps were elevated off the fascia. The cephalic vein was dissected out and retracted lateral with the deltoid. The clavipectoral fascia was divided at the lateral margin of the conjoined tendon and extended up to the CA ligament. The following findings were noted the upper 50% of the subscapularis was torn this extended into a massive tear extending to the teres minor. Biceps tendon was ruptured and retracted. There was a large bursal collection overlying the rotator cuff.. The upper centimeter of the pectoralis was released for inferior exposure. The subscapularis tendon was taken down off the lesser tuberosity using a subperiosteal dissection. A #1 Vicryl traction suture was placed into the free end of the subscapularis tendon and capsule. The subscapular muscle fibers were split longitudinally at the level of the circumflex vessels. The circumflex vessels were identified and tied off with silk ties and divided laterally. A Kitner elevator was used to free up the inferior fibers of the subscapularis off of the capsule. The axillary nerve was identified with a tug test and protected with a blunt Trey retractor between the nerve and the capsule. The subscapularis tendon was then taken down off of the lesser tuberosity subperiosteally and subperiosteal dissection was performed along the neck of the humerus as the arm is gradually actually rotated exposing the humeral head. Retractors were readjusted and the small inferior osteophytes were resected with a small rongeur.. A Crisostomo elevator was used to assist in releasing the capsule of the neck of the humerus. The capsule was divided with Verdugo scissors down to the glenoid released off the anterior glenoid and the rotator interval was released to meet the capsular release and a 360 release of the subscapularis was accomplished. A Fukuda retractor was placed into the joint retracting the humeral head posterior. Glenoid findings demonstrated grade 3 DJD. The labrum was resected. an anterior-inferior and posterior inferior capsular release were performed with electrocautery and a Crisostomo elevator on bone with the axillary nerve protected inferiorly by the retractor. Attention was then taken to the humeral preparation. The cutting guide was placed into the humeral head. It was positioned at 20 of retroversion. Oscillating saw was used to resect the humeral head giving the cut above the level of the posterior rotator cuff insertion site. The humerus was then prepared for the stem. I used the ascend flex stem from [employer]. The sizing broaches were used followed by trial broaches up to a size 4B long which had the appropriate fit and fill. The appropriate sized cut protector was placed. The humerus was then retracted posterior to the glenoid. The glenoid was sized for a 25. The guide for the baseplate was positioned in a 10 inferior tilt and the central drill hole was made. The reamer for the 25 baseplate was used. The central drill was widened for the peg. The 25 mm aequalis [employer] hydroxyapatite-coated baseplate was impacted into position. The base plate was transfixed with superior and inferior locking screws and anterior and posterior compression screws with stable fixation. The fan reamer was used for the 36 millimeter glenoid sphere. After irrigation the 36 glenoid sphere was impacted onto the baseplate and the screw was tightened. Attention was taken back to the humerus. The cut pr otector was removed and the +0 high offset humeral tray trial was assembled to the trial stem rotated appropriately to get bony coverage and then screwed in position. A trial reduction was performed. A +6 trial insert demonstrated good stability and no shuck. The trials were removed. 3 drill holes are made into the harder bone in the bicipital groove area and 3 #5 FiberWire sutures were placed transosseously. The canal was irrigated with antibiotic solution with bacitracin. The final component was assembled. The final component was 4B long ascend flex stem assembled to +0 high offset humeral tray and 36+6 humeral polyethylene insert. This was then impacted into the humerus with a tight press-fit. It was reduced to the glenoid sphere. Stability was verified. Subscapularis was repaired with the #5 FiberWire sutures using Kan-Zuhair suture technique. Lateral row soft tissue repair was performed with #2 FiberWire zhtipu-[id number] sutures. The pectoralis was repaired with #2 F iberWire [id number]-sa-[id number] sutures reinforcing the biceps tendon tenodesis. The arm was taken through a range of motion which demonstrated 130 degrees flexion 90 degrees abduction 45 degrees external rotation with no tension on repair. The implant was stable through the range of motion tested. The wound was copiously irrigated. 2 Hemovac drains were placed. The deltopectoral interval was closed with [id number] #1 Vicryl sutures. A transverse incision was made over the distal clavicle. Skin incised sharply. Subcu flaps were elevated. AC joint was identified and there was a ganglion cyst and bone spurs. This was excised and subperiosteal dissection performed around distal clavicle which was resected with an oscillating saw 1 cm removed. After irrigation the deltoid trapezius fascia was closed with [id number] #2 FiberWire sutures. The subcutaneous tissues of both incisions were closed with 2-0 Vicryl sutures. The skin was closed with ace. Sterile dressings were applied and a shoulder immobilizer. Maxi BLOOD my physician catering administrative assistant assisted in the procedure to the entire procedure including patient positioning arm positioning prepping and draping soft tissue retraction instrument management suture management and performed the subcutaneous and skin closure and will participate in the postoperative care of the patient. I attest to the content of the Intraoperative Record and any orders documented therein. Any exceptions are noted below.
[2019-04-07] MEDS: LOSARTAN POTASSIUM 50 MG TAB PO SCH (21:10)
[2019-04-07] MEDS: METOPROLOL SUCC 50MG EXT REL TAB PO SCH (21:10)
[2019-04-07] MEDS: DOCUSATE SODIUM 100 MG CAP PO SCH (21:10)
[2019-04-07] MEDS: SENNA 8.6 MG TAB PO SCH (21:10)
[2019-04-07] MEDS: CYANOCOBALAMIN 500 MCG TABLET (VITAMIN B-12) PO SCH (21:10)
[2019-04-07] MEDS: PRAVASTATIN SOD 40 MG TAB PO SCH (21:10)
[2019-04-08] MEDS: OXYCODONE HCL IR 5 MG TAB (IMMEDIATE RELEASE) PO PRN ×4 (00:20→17:01)
[2019-04-08] MEDS: INSULIN ASPART 100 UNITS/ML 3 ML PEN SC SCH ×6 (01:10→20:50)
[2019-04-08] MEDS: SODIUM CHLORIDE 0.9% 1000ML 1,000 ML IV SCH (04:35)
[2019-04-08] MEDS: ACETAMINOPHEN 500 MG TAB PO SCH ×3 (05:10→22:28)
[2019-04-08 05:57] LABS: Basophils # (auto) 0.01 K/uL (0-0.2); Basophils % (auto) 0.1 %; Eosinophils # (auto) 0.01 K/uL (0-0.5); Eosinophils % (auto) 0.1 %; Hematocrit (blood only) 28.8 % (37-47); Hemoglobin 9.5 g/dL (12.0-16.0); Immature Granulocytes # (auto) 0.02 K/uL (0.00-0.02); Immature Granulocytes % (auto) 0.2 %; Lymphocytes % (auto) 13.1 %; Mean Corpuscular Volume 99.3 fL (80-100); Mean Platelet Volume 9.5 fL (7.4-10.4); Monocytes # (auto) 0.81 K/uL (0.11-0.59); Monocytes % (auto) 9.6 %; Neutrophils # (auto) 6.46 K/uL (1.4-6.5); Neutrophils % (auto) 76.9 %; Platelet Count 181 K/uL (130-400); RDW Coefficient of Variation 12.7 % (11.5-14.5); RDW Standard Deviation 45.8 fL (36.4-46.3); White Blood Count 8.41 K/uL (4.8-10.8)
[2019-04-08 06:25] LABS: BUN Creatinine Ratio 24.2 (10-20); Calcium 8.6 mg/dl (8.5-10.1); Creatinine Clr Calc Pharmacy 36.6 ml/min; Est GFR (African American) 45.3; Est GFR (Non-African American) 39.1; Potassium 4.7 mmol/L (3.5-5.1)
--- NOTE | 2019-04-08 08:09 | Orthopedic Progress Note ---
Date of Service April 08, 2019 Assessment & Plan (1) Status post reverse total replacement of right shoulder: POD #1, Right reversed TSA, DCE, Biceps tenodesis Limited PT as ordered. D/C planning- Home w HEP. As per medicine. Subjective POD #1, Doing well, denies SOB, CP, N/V. Pain is only issue, Physical Exam Physical Exam: Right shoulder dressings c/d/i, no drainage, fingers mobile, sling in tact. A&Ox3. Results & Data Vital Signs (Past 12 Hours) Vital Signs Temp Pulse Resp BP Pulse Ox 04/08/19 07:19 36.8 C 66 18 114/70 94 04/08/19 03:42 36.6 C 51 L 17 113/69 97 04/07/19 23:24 36.6 C 69 17 108/68 95 04/07/19 21:04 70 18 105/67 94
[2019-04-08] MEDS: CEROVITE ADV FORMULA TAB PO SCH (08:34)
[2019-04-08] MEDS: DOCUSATE SODIUM 100 MG CAP PO SCH ×2 (08:35→20:17)
[2019-04-08] MEDS: ASPIRIN 81 MG ECTAB PO SCH (08:35)
[2019-04-08] MEDS: FERROUS SULFATE 325 MG TAB PO SCH (08:35)
[2019-04-08] MEDS: MULTIVITAMIN TAB PO SCH (08:35)
[2019-04-08] MEDS: ASCORBIC ACID 500 MG TAB PO SCH (08:36)
[2019-04-08] MEDS ORDERED: INSULIN GLARGINE SOLOSTAR 100 UNITS/ML 3 ML PEN SC ONE (09:00)
[2019-04-08] MEDS ORDERED: NON-FORMULARY MEDICATION (Biotin 10,000 MCG) PO SCH (09:00)
--- NOTE | 2019-04-08 15:38 | Hospitalist Progress Note ---
Date of Service April 08, 2019 Assessment & Plan (1) Status post reverse total replacement of right shoulder: - History of right shoulder rotator cuff arthropathy and AC arthritis, failed rotator cuff repair. - S/p right reverse total shoulder arthroplasty, distal clavicle excision and removal of hardware performed by Dr. José on 04/07/19, POD#1. - Pain control per primary team. - PT/OT evaluation. - Monitor CBC qAM to evaluate for acute blood loss. (2) Hypertension: - Continue Losartan 100mg PO daily, Metoprolol 50 mg PO daily as prescribed. (3) Hyperlipidemia: - Continue Pravastatin 40 mg daily. (4) Diabetes: - Hgb A1C 7.7; on Metformin, Glyburide, Tradjenta at home. - Pharmacy consulted for glycemic management. (5) Acute anemia: - Hemoglobin decreased to 9.5 -- monitor qAM. (6) CKD (chronic kidney disease): - Renally dose all meds. Dispo: Pt. is medically stable, will sign off. Supervising Physician Co-Signing Physician Notes Attending Attestation - Chart reviewed, care plan d/w CAITIE Denney. I agree w/ the womack components of her documentation. POD #1 s/p right total shoulder replacement. Labs and vitals remain acceptable. Mild acute blood loss anemia noted. DM - fingersticks mildly elevated but not severely - pharmacy consulted to assist in glycemic control. Other chronic medical problems stable. Jason Cazares MD Subjective Pt. is doing well. Right shoulder pain well controlled. Review of Systems Review of Systems: All systems reviewed & are unremarkable except as noted in HPI & below Constitutional: no fever, no chills, no fatigue and no weakness Respiratory: no cough, no dyspnea and no dyspnea on exertion Cardiovascular: no chest pain, no palpitations and no edema Gastrointestinal: + constipation; no abdominal pain, no nausea and no vomiting Genitourinary: no difficulty urinating Musculoskeletal: no back pain and no joint pain Integumentary: no non-healing lesions Allergy / Immunological: no rash Physical Exam Physical Exam: General: Resting comfortably HEENT: NC/AT; PERRLA with EOMI; [place] conjunctiva, MMM. No erythema of posterior pharynx Neck: Supple and nontender Cardiac: RRR w/o murmurs, gallops or rubs Lungs: CTA bilaterally; No rhonchi, wheezing, or rales Abdomen: Bowel normoactive X 4; Nontender to palpation Extremities: Warm. No edema present Neuro: No focal weakness Skin: No rash Results & Data Vital Signs (Past 12 Hours) Vital Signs Temp Pulse Resp BP Pulse Ox 04/08/19 07:19 36.8 C 66 18 114/70 94 04/08/19 03:42 36.6 C 51 L 17 113/69 97 Laboratory Results 04/08/19 04/08/19 04/08/19 Range/Units 12:09 07:56 05:42 WBC (4.8-10.8) K/uL RBC (4.2-5.4) M/uL Hgb (12.0-16.0) g/dL Hct (37-47) % MCV (80-100) fL MCH (25-34) pg MCHC (32-36) g/dL RDW Std Deviation (36.4-46.3) fL RDW Coeff of Dana (11.5-14.5) % Plt Count (130-400) K/uL MPV (7.4-10.4) fL Immature Gran % (Auto) % Neut % (Auto) % Lymph % (Auto) % [place] % (Auto) % Eos % (Auto) % Baso % (Auto) % Immature Gran # (Auto) (0.00-0.02) K/uL Neut # (Auto) (1.4-6.5) K/uL Lymph # (Auto) (1.2-3.4) K/uL [place] # (Auto) (0.11-0.59) K/uL Eos # (Auto) (0-0.5) K/uL Baso # (Auto) (0-0.2) K/uL Sodium (136-145) mmol/L Potassium (3.5-5.1) mmol/L Chloride (98-107) mmol/L Carbon Dioxide (21-32) mmol/L Anion Gap (3-11) BUN (7-18) mg/dl Creatinine (0.6-1.2) mg/dl Est Cr Clr Drug Dosing ml/min Est GFR ( Amer) Est GFR (Non-Af Amer) BUN/Creatinine Ratio (10-20) Glucose (70-99) mg/dl POC Glucose 94 168 H (70-99) Calcium (8.5-10.1) mg/dl Hepatitis C Ab Screen Neg (Neg) 04/08/19 04/08/19 04/08/19 Range/Units 05:42 05:42 03:46 WBC 8.41 (4.8-10.8) K/uL RBC 2.90 L (4.2-5.4) M/uL Hgb 9.5 L (12.0-16.0) g/dL Hct 28.8 L (37-47) % MCV 99.3 (80-100) fL MCH 32.8 (25-34) pg MCHC 33.0 (32-36) g/dL RDW Std Deviation 45.8 (36.4-46.3) fL RDW Coeff of Dana 12.7 (11.5-14.5) % Plt Count 181 (130-400) K/uL MPV 9.5 (7.4-10.4) fL Immature Gran % (Auto) 0.2 % Neut % (Auto) 76.9 % Lymph % (Auto) 13.1 % [place] % (Auto) 9.6 % Eos % (Auto) 0.1 % Baso % (Auto) 0.1 % Immature Gran # (Auto) 0.02 (0.00-0.02) K/uL Neut # (Auto) 6.46 (1.4-6.5) K/uL Lymph # (Auto) 1.10 L (1.2-3.4) K/uL [place] # (Auto) 0.81 H (0.11-0.59) K/uL Eos # (Auto) 0.01 (0-0.5) K/uL Baso # (Auto) 0.01 (0-0.2) K/uL Sodium 141 (136-145) mmol/L Potassium 4.7 (3.5-5.1) mmol/L Chloride 111 H (98-107) mmol/L Carbon Dioxide 23 (21-32) mmol/L Anion Gap 7.0 (3-11) BUN 33 H (7-18) mg/dl Creatinine 1.36 H (0.6-1.2) mg/dl Est Cr Clr Drug Dosing 36.6 ml/min Est GFR ( Amer) 45.3 Est GFR (Non-Af Amer) 39.1 BUN/Creatinine Ratio 24.2 H (10-20) Glucose 194 H (70-99) mg/dl POC Glucose 174 H (70-99) Calcium 8.6 (8.5-10.1) mg/dl Hepatitis C Ab Screen (Neg) 04/08/19 04/07/19 04/07/19 Range/Units 00:06 20:44 17:09 WBC (4.8-10.8) K/uL RBC (4.2-5.4) M/uL Hgb (12.0-16.0) g/dL Hct (37-47) % MCV (80-100) fL MCH (25-34) pg MCHC (32-36) g/dL RDW Std Deviation (36.4-46.3) fL RDW Coeff of Dana (11.5-14.5) % Plt Count (130-400) K/uL MPV (7.4-10.4) fL Immature Gran % (Auto) % Neut % (Auto) % Lymph % (Auto) % [place] % (Auto) % Eos % (Auto) % Baso % (Auto) % Immature Gran # (Auto) (0.00-0.02) K/uL Neut # (Auto) (1.4-6.5) K/uL Lymph # (Auto) (1.2-3.4) K/uL [place] # (Auto) (0.11-0.59) K/uL Eos # (Auto) (0-0.5) K/uL Baso # (Auto) (0-0.2) K/uL Sodium (136-145) mmol/L Potassium (3.5-5.1) mmol/L Chloride (98-107) mmol/L Carbon Dioxide (21-32) mmol/L Anion Gap (3-11) BUN (7-18) mg/dl Creatinine (0.6-1.2) mg/dl Est Cr Clr Drug Dosing ml/min Est GFR ( Amer) Est GFR (Non-Af Amer) BUN/Creatinine Ratio (10-20) Glucose (70-99) mg/dl POC Glucose 98 156 H 207 H (70-99) Calcium (8.5-10.1) mg/dl Hepatitis C Ab Screen (Neg) PG Care Time/CCT Total # of Minutes Spent Total Time Spent with Patient: Total time spent is greater than 50% in coordination of care (as documented) at patient's floor/unit and/or counseling patient: (1) Diabetes Diabetes mellitus complication status: without complication Diabetes mellitus retirement insulin use: without buttermaker use Diabetes mellitus type: type 2 Qualified Code(s): E11.9 - Type 2 diabetes mellitus without complications (2) Hyperlipidemia Hyperlipidemia type: unspecified Qualified Code(s): E78.5 - Hyperlipidemia, unspecified (3) CKD (chronic kidney disease) Chronic kidney disease stage: stage 2 (mild) Qualified Code(s): N18.2 - Chronic kidney disease, stage 2 (mild) (4) Hypertension Hypertension type: essential hypertension Qualified Code(s): I10 - Essential (primary) hypertension
[2019-04-08] MEDS: SENNA 8.6 MG TAB PO SCH (20:17)
[2019-04-08] MEDS: CYANOCOBALAMIN 500 MCG TABLET (VITAMIN B-12) PO SCH (20:18)
[2019-04-08] MEDS: PRAVASTATIN SOD 40 MG TAB PO SCH (20:18)
[2019-04-08] MEDS: LOSARTAN POTASSIUM 50 MG TAB PO SCH (20:21)
[2019-04-08] MEDS: METOPROLOL SUCC 50MG EXT REL TAB PO SCH (20:22)
[2019-04-09] MEDS: OXYCODONE HCL IR 5 MG TAB (IMMEDIATE RELEASE) PO PRN ×3 (00:05→14:33)
[2019-04-09] MEDS: ACETAMINOPHEN 500 MG TAB PO SCH ×2 (05:18→13:13)
[2019-04-09 06:38] LABS: Basophils # (auto) 0.02 K/uL (0-0.2); Basophils % (auto) 0.3 %; Eosinophils # (auto) 0.08 K/uL (0-0.5); Eosinophils % (auto) 1.1 %; Hematocrit (blood only) 28.7 % (37-47); Hemoglobin 9.4 g/dL (12.0-16.0); Immature Granulocytes # (auto) 0.02 K/uL (0.00-0.02); Immature Granulocytes % (auto) 0.3 %; Lymphocytes # (auto) 1.74 K/uL (1.2-3.4); Lymphocytes % (auto) 23.2 %; Mean Corpuscular Hgb Conc 32.8 g/dL (32-36); Mean Platelet Volume 9.8 fL (7.4-10.4); Monocytes # (auto) 0.88 K/uL (0.11-0.59); Monocytes % (auto) 11.7 %; Neutrophils # (auto) 4.75 K/uL (1.4-6.5); Neutrophils % (auto) 63.4 %; Platelet Count 174 K/uL (130-400); RDW Standard Deviation 47.5 fL (36.4-46.3); White Blood Count 7.49 K/uL (4.8-10.8)
[2019-04-09 07:05] LABS: BUN Creatinine Ratio 25.4 (10-20); Calcium 8.4 mg/dl (8.5-10.1); Creatinine Clr Calc Pharmacy 40.4 ml/min; Est GFR (African American) 51.1; Est GFR (Non-African American) 44.1; Potassium 4.7 mmol/L (3.5-5.1)
--- NOTE | 2019-04-09 07:50 | Orthopedic Progress Note ---
Date of Service April 09, 2019 Assessment & Plan (1) Status post reverse total replacement of right shoulder: POD #2, Right reversed TSA, DCE, Biceps tenodesis Limited PT as ordered. D/C planning- Home w HEP today. As per medicine. Subjective POD #2, Doing well, denies SOB, CP, N/V. Pain controlled better. Physical Exam Physical Exam: Right shoulder incision c/d/i, no drainage, no erythema, fingers mobile, sling in tact. A&Ox3. Results & Data Vital Signs (Past 12 Hours) Vital Signs Temp Pulse Resp BP Pulse Ox 04/09/19 07:35 37.1 C 60 18 104/53 L 97 04/08/19 23:28 36.8 C 56 L 18 115/71 97 04/08/19 20:20 66 109/64 93
[2019-04-09] MEDS: INSULIN ASPART 100 UNITS/ML 3 ML PEN SC SCH ×2 (08:46→13:14)
[2019-04-09] MEDS: FERROUS SULFATE 325 MG TAB PO SCH (08:54)
[2019-04-09] MEDS: DOCUSATE SODIUM 100 MG CAP PO SCH (08:55)
[2019-04-09] MEDS: MULTIVITAMIN TAB PO SCH (08:55)
[2019-04-09] MEDS: ASCORBIC ACID 500 MG TAB PO SCH (08:55)
[2019-04-09] MEDS: ASPIRIN 81 MG ECTAB PO SCH (08:55)
[2019-04-09] MEDS: CEROVITE ADV FORMULA TAB PO SCH (08:55)
--- NOTE | 2019-04-23 14:12 | Discharge Summary ---
HISTORY OF PRESENT ILLNESS: This is a 69-year-old female patient of Dr. José's complaining of chronic right shoulder pain, longstanding, now progressively getting worse. The patient failed conservative treatment including injections and anti-inflammatories. She was diagnosed with end-stage osteoarthritis and rotator cuff arthropathy. The patient wished to proceed with a right reverse total shoulder arthroplasty and distal clavicle excision. PAST MEDICAL HISTORY: Hypertension, diabetes mellitus, anemia, rheumatoid arthritis, osteoarthritis, neck problems, acid reflux, and obesity. POSTOPERATIVE COURSE: The patient underwent a right reversed total shoulder arthroplasty and distal clavicle excision on 04/07/2019. She was followed closely with medical consultation, limited physical therapy, and pain control. The patient did well postoperatively and was discharged home on postoperative day #2. PHYSICAL EXAMINATION: On discharge, right shoulder incision was clean, dry and intact. There was no redness or drainage. [place] were intact. Skin edges were approximated well. There was no redness or drainage. Fingers were mobile. Sling was intact. Neurologically and vascularly she was intact in her right upper extremity. DIAGNOSES: Status post reverse right reversed total shoulder arthroplasty, biceps tenodesis and distal clavicle excision with a history of hypertension, diabetes mellitus, anemia, rheumatoid arthritis, osteoarthritis, neck problems, acid reflux, and obesity. PLAN: The patient was discharged home on postoperative day #2. She will continue her preadmission medications and the use of pain medications. She will do home exercises as instructed and follow up with Dr. José as scheduled as an outpatient.
== END 2019-04-09 14:34 | disposition home or self-care (01) | DRG 483 ==
LOC: ASU 04:48 → 3E 09:50
DX: I12.9 Hypertensive chronic kidney disease with stage 1 through stage 4 chronic kidney disease, or unspecified chronic kidney disease; D62 Acute posthemorrhagic anemia; F17.210 Nicotine dependence, cigarettes, uncomplicated; Z79.899 Other long term (current) drug therapy; E66.9 Obesity, unspecified; Z68.28 Body mass index [BMI] 28.0-28.9, adult; Z96.612 Presence of left artificial shoulder joint; N18.3 Chronic kidney disease, stage 3 (moderate); M19.011 Primary osteoarthritis, right shoulder; M75.101 Unspecified rotator cuff tear or rupture of right shoulder, not specified as traumatic; Z96.653 Presence of artificial knee joint, bilateral; E78.5 Hyperlipidemia, unspecified; K21.9 Gastro-esophageal reflux disease without esophagitis; Z98.1 Arthrodesis status; E11.22 Type 2 diabetes mellitus with diabetic chronic kidney disease; M06.9 Rheumatoid arthritis, unspecified; Z79.84 Long term (current) use of oral hypoglycemic drugs